=== PATIENT | female | born 1990 | race Caucasian/White ===

== ENCOUNTER 2022-12-22 23:17 | Outpatient (CLI) | payer OTHER, SELFPAY ==
[2022-12-22 23:34] VITALS: PULSE 101; TEMP 37.1; O2SAT 98
[2022-12-22 23:35] VITALS: BMI 27.4
[2022-12-22 23:39] VITALS: BP 134/89; PULSE 114; PULSE 93; O2SAT 97
--- NOTE | 2023-01-04 08:32 | OB.TRI.NOTE ---
HPI - General General Date of Admission: 12/22/22 Date of Service: 12/22/22 Chief Complaint: r/o labor HPI Narrative YESENIA AGUDELO, is a 32 F who presents to OB triage at 39w5d with ctx's. No vb, lof. Good FM. Had membrane sweep in office and having regular ctx's. PFSH PFSH Medical History (Updated 01/04/23 @ 08:[address] Angie Sanchez, DO) Anxiety cardiac anomaly affecting , antepartum GDM, class A1 History of anxiety Mother currently breast-feeding (spontaneous vaginal delivery) Home Medications [id number] 1 mg tablet 1 tab PO DAILY 12/22/22 [History Last Taken 12/24/22 09:00 1 TAB] Allergy/AdvReac Type Severity Reaction Status Date / Time penicillin G Allergy Hives Verified 12/22/22 23:36 Surgical History (Updated 12/24/22 @ 19:39 by Carmelita Antoine) History of surgery Social History Smoking Status: Never smoker History Elective abortions Hx Para 0 Spontaneous abortions Hx # Term Pregnancies Ectopic pregnancies Hx # Pregnancies Multiple births # of living children NST FHR Rate Baby A Baseline: 120 Variability:: Moderate Accelerations:: 15 x 15 Decelerations:: None NST Reactive:: Yes FHR Category:: Category I Uterine Activity:: Ctx q 2-3 min Assessment & Plan (1) Uterine contractions: PLAN: - Cvx unchanged on exam after observation per RN - Suspect early labor - Return precautions
== END 2022-12-23 02:20 | disposition home or self-care (01) ==
LOC: WPOUT 23:30 → WP 23:32
PROVIDERS: PCP Family Medicine; Visit Provider Obstetrics & Gynecology
DX: O47.1 False labor at or after 37 completed weeks of gestation (principal); Z3A.39 39 weeks gestation of pregnancy
CPT/HCPCS: 59025; 59050; 99221; G0378

== ENCOUNTER 2022-12-24 18:55 | Inpatient (IN) | payer OTHER, SELFPAY ==
[2022-12-24] VITALS (20 sets, daily range): BP systolic 121–151; BP diastolic 77–95; PULSE 75–126; TEMP 36.2–36.8; O2SAT 97–99; BMI 26.4
--- OUTSIDE RECORDS SUMMARY | 2022-12-24 19:06 | XMS RPT_ITS | CCD ---
Author Name Unknown Address [address] [place] [address] Organization [facility] Care Team Providers Care Wildlife Conservationist Name Role Phone Albin Javier Unavailable Unavailable Moira Schafer Unavailable Unavailable Moira Schafer Unavailable Unavailable Dick Townsend Unavailable Unavailable None, No PCP Unavailable Unavailable Moira Schafer Unavailable Unavailable Unavailable Dr. Moira Schafer Primary Care Unavailable Sam, Dr. Gloria Bird Referring Unav ailable Vargas, Dr. Gloria Bird Attending Unav ailable YAYA, Dr. ALBIN ROBLEDO Referring Unavailkristofer JAVIER, Dr. ALBIN ROBLEDO Attending Unavailkristofer Schafer, Dr. Pizarro Primary Care Unavailable YAYA, Dr. ALBIN ROBLEDO Attending Unavailkristofer Schafer, Dr. Pizarro Primary Care Unavailable Unavailable Primary Care Provider UnavailAury Shaver RN Unavailable Unavailable PROUDFIT, LAZARA Referring Unavailable RYAN LEONARDO Attending Unavailable PROUDFIT, LAZARA Referring Unavailable GINA URIARTE Referring Unavailable CHAPITO GINA Referring Unavailable ANNY GOMEZ Attending Unavail able ANNY GOMEZ Attending Unavail able AMARA PIZANO Attending Unavailable AMARA PIZANO Attending Unavailable ANNY GOMEZ Attending Unavail able GINA URIARTE Attending Unavailable JUANITA LOCKWOOD Referring Unavailable LINSEY VENTURA Attending Unavailable GINA URIARTE Attending Unavailable AMARA PIZANO Attending Unavailable CHAPITO GINA Referring Unavailable JENN URIARTESSICA Attending Unavailable KIMBERLY CARMONA Attending Unavailable MADIE SANCHEZ Referring Unavailable SELF Referring Unavailable SELENA ALEJANDRA Attending Unavailable GINA URIARTE Attending Unavailable TAMI LITTLEJOHN Attending Unavailable CHAPITO, GINA Referring Unavailable JUANITA LOCKWOOD Attending Unavailable JUANITA LOCKWOOD Referring Unavailable SELENA ALEJANDRA Attending Unavailable GINA URIARTE Referring Unavailable Allergies Allergy Classification Reported Allergen(s) Allergy Type Date of Onset Reaction(s) Facility (8 sources) Penicillins; Translations: [Penicillins] Allergy to drug (finding) 06-08-2022 Unknown [facility] Other [place] [facility] (20 sources) Penicillins Drug Allergy 06-08-2022 Hives [facility] Work Phone: Medications Completed/Discontinued Medications Medication Drug Class(es) Dates Sig (Normalized) Sig (Original) aspirin 81 mg delayed release oral tablet (20 sources) Platelet Aggregation Inhibitor, Nonsteroidal Anti-inflammatory Drug Start: 06-19-2022 take 2 tablets by mouth once daily aspirin, enteric coated (ECOTRIN LOW STRENGTH) 81 mg EC tablet Take 2 tablets by mouth once daily. 0 06/19/2022 Active Problems Active Problems Problem Classification Problem Date Documented Date Episodic/Chronic Anxiety disorders (7 sources) Anxiety; Translations: [Anxiety state, unspecified] Chronic Contraceptive and procreative management (13 sources) Patient encounter status; Translations: [Other general counseling and advice on contraceptive management] Episodic Diabetes or abnormal glucose tolerance complicating ; childbirth; or the puerperium (20 sources) Impaired glucose tolerance in ; Translations: [Abnormal glucose complicating ] Onset: 09-25-2022 Episodic Other circulatory disease (6 sources) Feeling of lump in throat; Translations: [Gastrointestinal malfunction arising from mental factors] Episodic Other complications of ; puerperium affecting management of mother (1 source) care status; Translations: [Maternal care for other (suspected) abnormality and damage, cardiac anomalies, other fetus] Episodic Other complications of ; puerperium affecting management of mother (12 sources) Abnormality of heart; Translations: [Anomaly of heart of fetus affecting , antepartum, single or unspecified fetus] Onset: 11-16-2022 Episodic Other complications of (1 source) Hyperemesis gravidarum; Translations: [Mild hyperemesis gravidarum, unspecified as to episode of care or not applicable] Episodic Other lower respiratory disease (1 source) Cough; Translations: [Cough] Episodic Other and delivery including normal (20 sources) Urine test positive; Translations: [ examination or test, positive result] Onset: 06-08-2022 Episodic Other screening for suspected conditions (not mental disorders or infectious disease) (10 sources) Cancer cervix screening status; Translations: [Screening for malignant neoplasms of cervix] Onset: 02-14-2022 Episodic Past or Other Problems Problem Classification Problem Date Documented Da te Episodic/Chronic Cancer; other and unspecified primary (7 sources) H/O Malignant melanoma; Translations: [Personal history of malignant melanoma of skin] Resolved: 08-01-2019 Episodic Residual codes; unclassified (1 source) 25 weeks gestation of ; Translations: [25 weeks gestation of ] Onset: 09-18-2022 Episodic Residual codes; unclassified (1 source) 21 weeks gestation of ; Translations: [21 weeks gestation of ] Onset: 08-16-2022 Episodic Residual codes; unclassified (1 source) 13 weeks gestation of ; Translations: [13 weeks gestation of ] Onset: 08-07-2022 Episodic Residual codes; unclassified (1 source) 16 weeks gestation of ; Translations: [16 weeks gestation of ] Onset: 07-10-2022 Episodic Screening and history of mental health and substance abuse codes (20 sources) H/O: anxiety state; Translations: [Personal history of other mental and behavioral disorders] Onset: 06-08-2022 Episodic Unclassified (1 source) Patient encounter status; Translations: [ control counseling] NEGATED: Highlighted row has not occurred!Residual codes; unclassified (2 sources) Disease Episodic Results Test Name Value Interpretation Reference Range Facil ity Vital Signs Date Time Vital Sign Value Performing Clinician Melanie louis 12-20-2022 [id number] Body weight 61.24 kg Anny Nieves MD Work Phone: [facility] 12-20-2022 16:10-0400 Diastolic blood pressure 78 mm[Hg] Anny Nieves MD Work Phone: [facility] 12-20-2022 16:10-0400 Systolic blood pressure 128 mm[Hg] Anny Nieves MD Work Phone: [facility] 12-13-2022 13:09-040 Body weight 61.24 kg Amara Pizano APRN.CNM Work Phone: [facility] 12-13-2022 13:09-0400 Diastolic blood pressure 72 mm[Hg] Amara Plotts MATERNITY FLOOR SUPERVISOR.CNM Work Phone: [facility] 12-13-2022 13:09-0400 Systolic blood pressure 110 mm[Hg] Amara Plotts MATERNITY FLOOR SUPERVISOR.CNM Work Phone: [facility] 12-06-2022 14:12-0400 Body weight 60.33 kg Anny Nieves MD Work Phone: [facility] 12-06-2022 14:12-0400 Diastolic blood pressure 62 mm[Hg] Anny Nieves MD Work Phone: [facility] 12-06-2022 14:12-0400 Systolic blood pressure 100 mm[Hg] Anny Nieves MD Work Phone: [facility] 11-30-2022 14:22-0400 Diastolic blood pressure 60 mm[Hg] Selena Alejandra MD Work Phone: [facility] 11-30-2022 14:22-0400 Systolic blood pressure 100 mm[Hg] Selena Alejandra MD Work Phone: [facility] 11-30-2022 13:59-0400 Body weight 61.24 kg Ob Ultrasound Work Phone: [facility] 11-16-2022 15:24-0400 Body weight 59.15 kg Selena Alejandra MD Work Phone: [facility] 11-16-2022 15:24-0400 Diastolic blood pressure 64 mm[Hg] Selena Alejandra MD Work Phone: [facility] 11-16-2022 15:24-0400 Systolic blood pressure 110 mm[Hg] Selena Alejandra MD Work Phone: [facility] 11-02-2022 09:36-0400 Diastolic blood pressure 70 mm[Hg] Amara Plotts MATERNITY FLOOR SUPERVISOR.CNM Work Phone: [facility] 11-02-2022 09:36-0400 Systolic blood pressure 104 mm[Hg] Amara Pizano MATERNITY FLOOR SUPERVISOR.CNM Work Phone: [facility] 10-30-2022 07:53-0400 Body height 149.9 cm Tami Littlejohn MILADIS [facility] 10-30-2022 07:53-0400 Body weight 56.7 kg Tami Escalantemike REDDING [facility] 10-18-2022 13:14-0400 Body weight 56.7 kg Gina Uriarte MATERNITY FLOOR SUPERVISOR.CNM Work Phone: [facility] 10-18-2022 13:14-0400 Diastolic blood pressure 64 mm[Hg] Gina Uriarte MATERNITY FLOOR SUPERVISOR.CNM Work Phone: [facility] 10-18-2022 13:14-0400 Systolic blood pressure 114 mm[Hg] Gina Uriarte MATERNITY FLOOR SUPERVISOR.CNM Work Phone: [facility] 09-13-2022 15:15-0400 Body weight 57.15 kg Gina Uriarte MATERNITY FLOOR SUPERVISOR.CNM Work Phone: [facility] 09-13-2022 15:15-0400 Diastolic blood pressure 60 mm[Hg] Gina Uriarte MATERNITY FLOOR SUPERVISOR.CNM Work Phone: [facility] 09-13-2022 15:15-0400 Systolic blood pressure 102 mm[Hg] Gina Uriarte MATERNITY FLOOR SUPERVISOR.CNM Work Phone: [facility] 08-16-2022 14:15-0400 Body weight 53.52 kg Gina Uriarte MATERNITY FLOOR SUPERVISOR.CNM Work Phone: [facility] 08-16-2022 14:15-0400 Diastolic blood pressure 77 mm[Hg] Gina Uriarte MATERNITY FLOOR SUPERVISOR.CNM Work Phone: [facility] 08-16-2022 14:15-0400 Systolic blood pressure 113 mm[Hg] Gina Uriarte MATERNITY FLOOR SUPERVISOR.CNM Work Phone: [facility] 08-07-2022 15:37-0400 Body weight 53.98 kg Anny Nieves MD Work Phone: [facility] 08-07-2022 15:37-0400 Diastolic blood pressure 62 mm[Hg] Anny Nieves MD Work Phone: [facility] 08-07-2022 15:37-0400 Systolic blood pressure 100 mm[Hg] Anny Nieves MD Work Phone: [facility] 07-10-2022 14:34-0500 Body weight 52.71 kg Gina Uriarte MATERNITY FLOOR SUPERVISOR.CNM Work Phone: [facility] 07-10-2022 14:34-0500 Diastolic blood pressure 66 mm[Hg] Gina Uriarte MATERNITY FLOOR SUPERVISOR.CNM Work Phone: [facility] 07-10-2022 14:34-0500 Systolic blood pressure 112 mm[Hg] Gina Uriarte MATERNITY FLOOR SUPERVISOR.CNM Work Phone: [facility] 06-19-2022 11:36-0500 Body height 149.9 cm Juanita Lockwood MD Work Phone: [facility] 06-19-2022 11:36-0500 Body weight 49.44 kg Juanita Lockwood MD Work Phone: [facility] 06-19-2022 11:36-0500 Diastolic blood pressure 60 mm[Hg] Juanita Lockwood MD Work Phone: [facility] 06-19-2022 11:36-0500 Systolic blood pressure 102 mm[Hg] Juanita Lockwood MD Work Phone: [facility] 05-19-2022 14:57-0500 Body height 153.16 cm Moira Schafer [facility] Phone: [facility] [employer] Work Phone: 05-19-2022 14:57-0500 Body mass index (BMI) [Ratio] 21.1 kg/m2 Moira Schafer Work Phone: [facility] [employer] Work Phone: 05-19-2022 14:57-0500 Body surface area Derived from formula 1.45 m2 Moira Schafer Work Phone: [place] [address] [place] Work Phone: 05-19-2022 14:57-0500 Body weight 49.5 kg Moira Schafer Work Phone: [place] [address] [employer] Work Phone: 05-19-2022 14:57-0500 Diastolic blood pressure 82 mm[Hg] Moira Schafer Work Phone: [place] [address] [employer] Work Phone: 05-19-2022 14:57-0500 Systolic blood pressure 126 mm[Hg] Moira Schafer Work Phone: [place] [address] [employer] Work Phone: 02-14-2022 15:42-0400 Body height 153.16 cm Moira Valenzuela Schafer Work Phone: [place] [address] [employer] Work Phone: 02-14-2022 15:42-0400 Body mass index (BMI) [Ratio] 21.49 kg/m2 Moira Schafer Work Phone: [place] [address] [employer] Work Phone: 02-14-2022 15:42-0400 Body surface area Derived from formula 1.46 m2 Moira Schafer Work Phone: [place] [address] [employer] Work Phone: 02-14-2022 15:42-0400 Body weight 50.41 kg Moira Schafer Work Phone: [place] [address] [employer] Work Phone: 02-14-2022 15:42-0400 Diastolic blood pressure 70 mm[Hg] Moira Schafer Work Phone: [place] [address] [employer] Work Phone: 02-14-2022 15:42-0400 Systolic blood pressure 108 mm[Hg] Moira Schafer Work Phone: [place] [address] [employer] Work Phone: 02-08-2021 15:31-0400 Body height 153.19 cm Moira Schafer Work Phone: [place] [address] [employer] Work Phone: 02-08-2021 15:31-0400 Body mass index (BMI) [Ratio] 21.14 kg/m2 Moira Schafer Work Phone: [place] [address] [place] Work Phone: 02-08-2021 15:31-0400 Body surface area Derived from formula 1.45 m2 Moira Schafer Work Phone: [place] [address] [employer] Work Phone: 02-08-2021 15:31-0400 Body temperature 98.2 [degF] Moira Schafer Work Phone: [place] [address] [employer] Work Phone: 02-08-2021 15:31-0400 Body weight 49.6 kg Moira Schafer Work Phone: [place] [address] [place] Work Phone: 02-08-2021 15:31-0400 Diastolic blood pressure 68 mm[Hg] Moira Schafer Work Phone: [place] [address] [employer] Work Phone: 02-08-2021 15:31-0400 Systolic blood pressure 118 mm[Hg] Moira Schafer Work Phone: [place] [address] [place] Work Phone: 08-01-2019 12:17-0400 BMI (Body Mass Index) 19.61 kg/m2 Moira Schafer [facility] Work Phone: 08-01-2019 12:17-0400 Body weight 46.01 kg Moira Gilmar [facility] Work Phone: 08-01-2019 12: BP Diastolic 74 mm[Hg] Moira Gilmar [facility] Work Phone: Encounters Encounter Date Encounter Type Care Provider Facility Start: 12-22-2022 Telephone encounter Madie feldman MD Work Phone: OB/Gynecology Procedures Date Procedure Procedure Detail Performing Clinician Start: 12-20-2022 URINE OB DIP B/O Anny Nieves MD Work Phone: Start: 12-06-2022 URINE OB DIP B/O Anny Nieves MD Work Phone: Start: 11-30-2022 URINE OB DIP B/O Selena Alejandra MD Work Phone: Start: 11-30-2022 Us preg uterus after 1st trimest 05/14 gestation Gina Uriarte MATERNITY FLOOR SUPERVISOR.CNM Work Phone: Start: 11-16-2022 URINE OB DIP B/O Selena Alejandra MD Work Phone: Start: 11-02-2022 URINE OB DIP B/O Maycol Pizano MATERNITY FLOOR SUPERVISOR.CNM Work Phone: Start: 10-18-2022 URINE OB DIP B/O Jeanine Uriarte MATERNITY FLOOR SUPERVISOR.CNM Work Phone: Start: 09-13-2022 URINE OB DIP B/O Jeanine Uriarte MATERNITY FLOOR SUPERVISOR.CNM Work Phone: Start: 08-16-2022 URINE OB DIP B/O Jeanine Uriarte MATERNITY FLOOR SUPERVISOR.CNM Work Phone: Start: 08-07-2022 URINE OB DIP B/O Anny Nieves MD Work Phone: Start: 07-10-2022 URINE OB DIP B/O Jeanine Uriarte MATERNITY FLOOR SUPERVISOR.CNM Work Phone: Start: 06-19-2022 Antibody screen GINA URIARTE Plan of Treatment Date Care Activity Detail Author Start: 10-04-2032 Urine microalbumin profile DTAP,TDAP,TD (2 - Td or Tdap) [facility] Start: 02-14-2027 HPV TESTING HPV TESTING [facility] Start: 02-14-2027 PAP TESTING PAP TESTING [facility] Start: 02-16-2023 Patient encounter procedure ANNUAL, Provider: Gloria Vargas, Status: Pen, Time: 3:30 PM [address] Work Phone: Start: 01-12-2023 Influenza vaccination [facility] Start: 10-20-2022 End: 12-20-2022 GEST GLUC COLUMBA, 3-HR, 100 GM, FASTING GEST GLUC COLUMBA, 3-HR, 100 GM, FASTING Lab Routine Abnormal glucose in , antepartum Expected: 10/20/2022, Expires: 12/20/2022 [facility] Work Phone: Immunizations Immunization Date Immunization Notes Care Provider Fa naz 10-04-2022 tetanus toxoid, redu reese diphtheria toxoid, and acellular pertussis vaccine, adsorbed Juanita Lockwood MD Work Phone: [facility] Payers Date Payer Category Payer Unknown 2022 Unknown [id number] 1990 Unknown [id number] [id number] 1990 Unknown [id number] [id number]. [id number] 1990 Unknown [id number] [id number]. [id number] Private Health Insurance [id number] Social History Date Type Detail Facility Start: 09-13-2022 End: 11-16-2022 Never a smoker Never a smoker [address] Work Phone: Start: 06-08-2022 Tobacco smoking status NHIS Never smoked tobacco [facility] Work Phone: Start: 06-08-2022 Tobacco use and exposure Smokeless tobacco non-user [facility] Work Phone: Start: 06-08-2022 End: 12-13-2022 Alcohol intake Ex-drinker (finding) [facility] Start: 06-08-2022 Education 13 [facility] Start: 06-08-2022 Alcohol Comment Occasionally [facility] Start: 04-03-2022 [facility] Start: 1990 Sex Assigned At Not on file [facility] Start: 09-13-2022 End: 11-16-2022 Tobacco use panel [facility] National Score (1-100), lower number is lower risk 89 [facility] NEGATED: Highlighted row - - [facility] Work Phone: Medical Equipment Procedure Code Equipment Code Equipment Origin al Text Equipment Identifier Dates Start: 09-25-2022 Goals Date Patient Goal Desired Activity /State Personal health goal Functional Status Date Assessment Result Facility NEGATED: Highlighted row Functional performance Functional status health issues are not documented Disease [facility] Work Phone: Mental Status Date Assessment Result Facility NEGATED: Highlighted row Cognitive function [Interpretation] Cognitive status health issues are not documented Disease [facility] Work Phone: Clinical Notes 01-16-2022 to 12-22-2022 Telephone Encounter - Leah Esposito RN - 12/22/2022 12:28 PM EDTTelephone Encounter - Madie Sanchez MD - 12/22/2022 12:25 PM EDTTelephone Encounter - Kathleen Rasmussen RN - 12/22/2022 10:02 AM EDT Note Date & Type Note Facility 12-22-2022 Miscellaneous Notes Patient notified. Leah Esposito RN Agree with labor precautions 39w4d Patient had a membrane sweep this week. Having light pink to red spotting only when she wipes still. Denies LOF. Thinks she may have lost all or part of her mucous plug. Having intermittent contractions. This morning she was pretty uncomfortable, but no contractions now. Reviewed s/s of labor. Scheduled for IOL of Sunday. Good FM. Advised to continue to monitor and a message would be sent to DOC. Kathleen Rasmussen RN documented in this encounter [facility] 12-20-2022 Miscellaneous Notes DM- Pt doing well today. Denies Vaginal Bleeding, Leaking fluid, or contractions. Pt reports good movement. BS- log reviewed- well controlled. IOL scheduled 39.6 weeks for cervical ripening, GDMA1. Kick counts and labor reviewed. Anny Rivera MD documented in this encounter [facility] 12-20-2022 Instructions Radha Ferro Ma 12/20/2022 4:06 PM EDT SEQUENTIAL SCREENINGS The [facility] offers sequential screenings for women who are interested in screenings for chromosomal abnormalities and certain defects during a . The sequential screen combines ultrasound and blood tests to determine the risk of chromosomal abnormalities, including Down's Syndrome (Trisomy 21) and Trisomy 18, as well as open neural tube defects including spina bifida. Ultrasound examination is performed between 11 weeks and 13 weeks gestational age. Blood tests are drawn after the ultrasound and again later in the between 15 and 21 weeks gestational age. Please let your physician know if you are interested in this testing. It will require an appointment with our cadd technician. This is not an ultrasound performed by a physician in our office during a routine visit. SIGNS AND SYMPTOMS OF LABOR 1. Contractions every 10 minutes or more often 2. Clear, pink, or brownish fluid (water) leaking from vagina 3. Feeling that baby is pushing down, pressure 4. Low, dull backache 5. Cramps that feel like a period 6. Cramps with or without diarrhea If you notice any of the above symptoms, contact our office at [phone] and ask to speak with a nurse. After hours, you can call doctors registry at [phone] OR call [facility] at [phone] and ask to have the doctor stone banker paged. If you consider this an emergency, dial 9-1-0 or go to your nearest emergency department. NEED HELP? Are you dealing with a violent or abusive relationship? Are you a victim of rape or sexual assult? Call [facility] ([place]) 24 hour Crisis Hotline: 419.680.3434 or 481-021-6207. MANUAL Your Guide to a Healthy manual is now on-line. Visit [email or web address] ncyGuide to download your free copy documented in this encounter [facility] 12-18-2022 Miscellaneous Notes Please make sure she is drinking and eating appropriately. Slower movements with position changes and elevating feet when sitting. Amara Pizano APRN.CNM 39w0d documented in this encounter [facility] 12-13-2022 Miscellaneous Notes Kathleen Diaz is a 32 year old female who presents at 38w2d for a routine visit. Good movement. Occasional cramps with some lower back pain. Nothing that is consistent or able to time. Denies headache, visual changes, chest pain, shortness of breath, vaginal bleeding, leakage of fluid, or dysuria. Feeling well, no complaints. Requesting CE today. ASSESSMENT/PLAN: 1. 38 weeks gestation of - ICD9: V22.2, ICD10: Z3A.38 (primary diagnosis) 2. Gestational diabetes mellitus, class A1 - ICD9: 648.80, ICD10: O24.410 3. LUIS ANTONIO (generalized anxiety disorder) - ICD9: 300.02, ICD10: F41.1 - Reviewed blood sugar logs- Fastings- none elevated. 1 hour PP- 3 elevated. <50% out of range. Good control - URINE OB DIP B/O - Desires physiological onset of labor - Discussed induction of labor- elective vs. medically indicated. Patient declines induction at 39 weeks which is appropriate due to being GDM A1 and well controlled with diet. No other risk factors. May desire induction at 40 weeks. - EFW 26%, GAMALIEL 16 at 36 weeks gestation - GBS negative - Labor precautions and kick counts reviewed RTO- 1 week for HILDA with CE and possible membrane sweep Amara Pizano APRN.CNM documented in this encounter [facility] 12-13-2022 Instructions Amara Pizano APRN.CNM - 12/13/2022 1:09 PM EDT Monistat 7 vaginally x 7 night SEQUENTIAL SCREENINGS The [facility] offers sequential screenings for women who are interested in screenings for chromosomal abnormalities and certain defects during a . The sequential screen combines ultrasound and blood tests to determine the risk of chromosomal abnormalities, including Down's Syndrome (Trisomy 21) and Trisomy 18, as well as open neural tube defects including spina bifida. Ultrasound examination is performed between 11 weeks and 13 weeks gestational age. Blood tests are drawn after the ultrasound and again later in the between 15 and 21 weeks gestational age. Please let your physician know if you are interested in this testing. It will require an appointment with our cadd technician. This is not an ultrasound performed by a physician in our office during a routine visit. SIGNS AND SYMPTOMS OF LABOR 1. Contractions every 10 minutes or more often 2. Clear, pink, or brownish fluid (water) leaking from vagina 3. Feeling that baby is pushing down, pressure 4. Low, dull backache 5. Cramps that feel like a period 6. Cramps with or without diarrhea If you notice any of the above symptoms, contact our office at [phone] and ask to speak with a nurse. After hours, you can call doctors registry at [phone] OR call [facility] at [phone] and ask to have the doctor stone banker paged. If you consider this an emergency, dial 9-1-5 or go to your nearest emergency department. NEED HELP? Are you dealing with a violent or abusive relationship? Are you a victim of rape or sexual assult? Call [facility] ([place]) 24 hour Crisis Hotline: 791.100.2950 or 812-660-1114. MANUAL Your Guide to a Healthy manual is now on-line. Visit [email or web address] ncyGuide to download your free copy documented in this encounter [facility] 12-06-2022 Miscellaneous Notes DM- Pt doing well today. Denies Vaginal Bleeding, Leaking fluid, or contractions. Pt reports good movement. BS log reviewed- well controlled, all WNL. Kick counts and labor reviewed. Growth us reviewed, 26%. RTO one week. Delivery by 40 weeks for GDMA1. Anny Rivera MD documented in this encounter [facility] 12-06-2022 Instructions Radha Ferro Ma - 12/06/2022 2:12 PM EDT SEQUENTIAL SCREENINGS The [facility] offers sequential screenings for women who are interested in screenings for chromosomal abnormalities and certain defects during a . The sequential screen combines ultrasound and blood tests to determine the risk of chromosomal abnormalities, including Down's Syndrome (Trisomy 21) and Trisomy 18, as well as open neural tube defects including spina bifida. Ultrasound examination is performed between 11 weeks and 13 weeks gestational age. Blood tests are drawn after the ultrasound and again later in the between 15 and 21 weeks gestational age. Please let your physician know if you are interested in this testing. It will require an appointment with our cadd technician. This is not an ultrasound performed by a physician in our office during a routine visit. SIGNS AND SYMPTOMS OF LABOR 1. Contractions every 10 minutes or more often 2. Clear, pink, or brownish fluid (water) leaking from vagina 3. Feeling that baby is pushing down, pressure 4. Low, dull backache 5. Cramps that feel like a period 6. Cramps with or without diarrhea If you notice any of the above symptoms, contact our office at [phone] and ask to speak with a nurse. After hours, you can call doctors registry at [phone] OR call [facility] at [phone] and ask to have the doctor stone banker paged. If you consider this an emergency, dial 9-1-4 or go to your nearest emergency department. NEED HELP? Are you dealing with a violent or abusive relationship? Are you a victim of rape or sexual assult? Call [facility] ([place]) 24 hour Crisis Hotline: 362.384.4506 or 829-786-9764. MANUAL Your Guide to a Healthy manual is now on-line. Visit [email or web address] ncyGuide to download your free copy documented in this encounter [facility] 11-30-2022 Miscellaneous Notes Patient notified The report says it there is concern for a bicuspid aortic valve. This is what we have been evaluating on the US & echo. The plan is still to get a post troy echo. There are no new concerns. Selena Alejandra MD Please see pt's mychart message and further advise. Sheeba Cat LPN documented in this encounter [facility] 11-30-2022 Miscellaneous Notes KJ - No VB/LOF. Reports occ mild ctxs & good FM. A&P: GDM - BS log reviewed & overall normal. Encouraged continued diet compliance & walking. Possible bicuspid aortic valve - see problem list GBS today Reviewed PTL & FM precautions Selena Alejandra MD documented in this encounter [facility] 11-30-2022 Instructions Ibis Mtz MA - 11/30/2022 2:05 PM EDT SEQUENTIAL SCREENINGS The [facility] offers sequential screenings for women who are interested in screenings for chromosomal abnormalities and certain defects during a . The sequential screen combines ultrasound and blood tests to determine the risk of chromosomal abnormalities, including Down's Syndrome (Trisomy 21) and Trisomy 18, as well as open neural tube defects including spina bifida. Ultrasound examination is performed between 11 weeks and 13 weeks gestational age. Blood tests are drawn after the ultrasound and again later in the between 15 and 21 weeks gestational age. Please let your physician know if you are interested in this testing. It will require an appointment with our cadd technician. This is not an ultrasound performed by a physician in our office during a routine visit. SIGNS AND SYMPTOMS OF LABOR 1. Contractions every 10 minutes or more often 2. Clear, pink, or brownish fluid (water) leaking from vagina 3. Feeling that baby is pushing down, pressure 4. Low, dull backache 5. Cramps that feel like a period 6. Cramps with or without diarrhea If you notice any of the above symptoms, contact our office at [phone] and ask to speak with a nurse. After hours, you can call doctors registry at [phone] OR call [facility] at [phone] and ask to have the doctor stone banker paged. If you consider this an emergency, dial 2--8 or go to your nearest emergency department. NEED HELP? Are you dealing with a violent or abusive relationship? Are you a victim of rape or sexual assult? Call [facility] ([place]) 24 hour Crisis Hotline: 986.633.7868 or 350-657-3952. MANUAL Your Guide to a Healthy manual is now on-line. Visit [email or web address] ncyGuide to download your free copy documented in this encounter [facility] 11-28-2022 Miscellaneous Notes Noted Please have her bring log to visit this week Selena Alejandra MD Patient has an OB visit scheduled with Dr Alejandra on 11/30 documented in this encounter [facility] 11-27-2022 Miscellaneous Notes Breast pump order signed and faxed. Leah Esposito RN Received faxed breast pump order from [employer] . On DM desk for signature documented in this encounter [facility] 11-16-2022 Miscellaneous Notes KJ - No VB/LOF/ctxs. Reports good FM. A&P: Possible bicuspid aortic valve - see problem list GDMA1 - BS log reviewed & overall normal. Encouraged diet compliance & walking. Reviewed PTL & FM precautions Selena Alejandra MD documented in this encounter [facility] 11-16-2022 Instructions Ibis Mtz MA - 11/16/2022 3:19 PM EDT SEQUENTIAL SCREENINGS The [facility] offers sequential screenings for women who are interested in screenings for chromosomal abnormalities and certain defects during a . The sequential screen combines ultrasound and blood tests to determine the risk of chromosomal abnormalities, including Down's Syndrome (Trisomy 21) and Trisomy 18, as well as open neural tube defects including spina bifida. Ultrasound examination is performed between 11 weeks and 13 weeks gestational age. Blood tests are drawn after the ultrasound and again later in the between 15 and 21 weeks gestational age. Please let your physician know if you are interested in this testing. It will require an appointment with our cadd technician. This is not an ultrasound performed by a physician in our office during a routine visit. SIGNS AND SYMPTOMS OF LABOR 1. Contractions every 10 minutes or more often 2. Clear, pink, or brownish fluid (water) leaking from vagina 3. Feeling that baby is pushing down, pressure 4. Low, dull backache 5. Cramps that feel like a period 6. Cramps with or without diarrhea If you notice any of the above symptoms, contact our office at [phone] and ask to speak with a nurse. After hours, you can call doctors registry at [phone] OR call [facility] at [phone] and ask to have the doctor stone banker paged. If you consider this an emergency, dial 9-1-6 or go to your nearest emergency department. NEED HELP? Are you dealing with a violent or abusive relationship? Are you a victim of rape or sexual assult? Call [facility] ([place]) 24 hour Crisis Hotline: 446.313.3803 or 522-791-0302. MANUAL Your Guide to a Healthy manual is now on-line. Visit [email or web address] ncyGuide to download your free copy documented in this encounter [facility] 11-10-2022 Miscellaneous Notes Please see pt's mychart message and advise. Sheeba Cat LPN documented in this encounter [facility] 11-10-2022 Miscellaneous Notes See pt's blood sugar readings. Sheeba Cat LPN Patient 32w4d, last seen in office yesterday with CP. Looks like provider reviewed blood sugars with her yesterday. Haley Goodwin RN documented in this encounter [facility] 11-06-2022 Note HNO ID: [id number] Author: Ryan Leonardo MD Service: ? Author Type: Physician Type: Progress Notes Filed: 11/06/2022 1:21 PM Note Text: /Pediatric Cardiology Consultation Lazara Kirk [address] [facility] [address] NAME: Kathleen Diaz Date of : 1990 Date of Visit: November 06, 2022 Estimated Date of Delivery: 12/25/[address] Kirk, I had the pleasure of seeing your patient, Ms. Kathleen Diaz, for a echocardiogram at the [facility] in [place]. As you know, she is a 32 year old year old female at 33 weeks 0 days gestation who is here for a echocardiogram due to thickened/echogenic aortic valve. She has history of melanoma s/p removal, anxiety, and diet-controlled gestational diabetes, otherwise had an uncomplicated so far. She checks her blood sugars 4 daily, they generally trend 70s - 150s. Genetic testing included a low risk NIPT, female fetus. Her current medications include hydroxyzine, aspirin, and vitamins. She endorses a medication allergy to Penicillin antibiotics. Kathleen's mother has mitral valve prolapse, otherwise no known family history of congenital heart disease, sudden cardiac , pacemakers congenital anomalies. She denies any alcohol, tobacco, or drug use during the . She plans to deliver at [facility]. A full echocardiogram was performed and reviewed by myself. Please see the full report in Chart Review/Cardiac tab. echocardiogram today showed normal intracardiac segmental anatomy. The biventricular size and function was qualitatively normal. No significant left- right size discrepancy. No significant ventricular level shunts. There is borderline hypoplastic aortic valve without stenosis or regurgitation. No evidence for hydrops. The ductus venosus, umbilical vein and umbilical artery Dopplers were normal. Echocardiogram Summary: Levocardia with normal intracardiac segmental anatomy (S, D, S). Mildly echogenic aortic valve leaflets without stenosis or regurgitation. Aortic valve measures lower limits of normal (5.0 mm/Z-1.99). Normal ascending aorta dimension. No significant atrioventricular valvar regurgitation; normal biphasic inflow pattern. Normal left-sided aortic and ductal arches. Normal aortic isthmus 4.4 mm on sagittal view (Pasquini z-score +0.51); 4.2 mm on 3VV (Pasquini z-score -0.14). Normal biventricular size, wall thickness, and systolic function. No significant right/left ventricular size discrepancy. One right and one left-sided pulmonary veins connect to left atrium. Normal systemic venous connections. No left SVC. Foramen ovale with normal intrauterine right to left flow. No pericardial effusion or evidence of hydrops. Normal umbilical artery/vein, ductus venosus, and MCA Doppler profiles. Normal heart rate (161 BPM, TX 113 ms) and rhythm. We reviewed the findings of today's echocardiogram with Ms. Kathleen Diaz with the help of a diagram. I explained normal and cardiac anatomy and physiology. I explained the aortic valve appears mildly echobright/thickened, suggesting a bicuspid aortic valve. The effective annulus is borderline/mildly hypoplastic without stenosis or insufficiency. There is no dilation of the ascending aorta. The mitral valve appears normal without any hypoplasia or regurgitation. The left ventricle is normal sized, apex-forming without any evidence of significant hypertrophy or impaired systolic function. The aortic isthmus measures normally. As Ms. Diaz is already 33 weeks GA, we will defer further echocardiograms. We discussed the need for post- echocardiogram to confirm the diagnosis. If the baby is confirmed to have a bicuspid aortic valve, we discussed the genetic correlation that left-sided obstructive lesions including bicuspid aortic valves can run in families and we recommend echocardiograms of first degree relatives (mother/father/siblings). Should the degree of stenosis increase during , we discussed procedures that may be offered including percutaneous balloon dilation. I also explained the limitations of a echocardiogram, including that the foramen ovale and ductus arteriosus are normal structures and are present in the fetus today, however, we are unable to predict if they close normally after . In addition, we reviewed that certain cardiac anomalies are challenging to diagnose on echocardiography, including atrial septal defects, small ventricular septal defects, minor valve abnormalities, pulmonary vein anomalies and coarctation of the aorta. Based on today's echocardiogram, Assessment 1. Maternal gestational diabetes 2. Thickened/echobright aortic valve, borderline/mildly hypoplastic annul (more content not included)... [facility] 11-06-2022 History of Present illness Narrative /Pediatric Cardiology Consultation [facility]azara Kirk [address] [facility] [address] NAME: Kathleen Diaz Date of : 1990 Date of Visit: November 06, 2022 Estimated Date of Delivery: 12/25/[address] Kirk, I had the pleasure of seeing your patient, Ms. Kathleen Diaz, for a echocardiogram at the [facility] in [place]. As you know, she is a 32 year old year old female at 33 weeks 0 days gestation who is here for a echocardiogram due to thickened/echogenic aortic valve. She has history of melanoma s/p removal, anxiety, and diet-controlled gestational diabetes, otherwise had an uncomplicated so far. She checks her blood sugars 4 daily, they generally trend 70s - 150s. Genetic testing included a low risk NIPT, female fetus. Her current medications include hydroxyzine, aspirin, and vitamins. She endorses a medication allergy to Penicillin antibiotics. Kathleen's mother has mitral valve prolapse, otherwise no known family history of congenital heart disease, sudden cardiac , pacemakers <age 50 or heart transplants. No known family history of congenital anomalies. She denies any alcohol, tobacco, or drug use during the . She plans to deliver at [facility]. A full echocardiogram was performed and reviewed by myself. Please see the full report in Chart Review/Cardiac tab. echocardiogram today showed normal intracardiac segmental anatomy. The biventricular size and function was qualitatively normal. No significant left- right size discrepancy. No significant ventricular level shunts. There is borderline hypoplastic aortic valve without stenosis or regurgitation. No evidence for hydrops. The ductus venosus, umbilical vein and umbilical artery Dopplers were normal. Echocardiogram Summary: Levocardia with normal intracardiac segmental anatomy (S, D, S). Mildly echogenic aortic valve leaflets without stenosis or regurgitation. Aortic valve measures lower limits of normal (5.0 mm/Z-1.99). Normal ascending aorta dimension. No significant atrioventricular valvar regurgitation; normal biphasic inflow pattern. Normal left-sided aortic and ductal arches. Normal aortic isthmus 4.4 mm on sagittal view (Pasquini z-score +0.51); 4.2 mm on 3VV (Pasquini z-score -0.14). Normal biventricular size, wall thickness, and systolic function. No significant right/left ventricular size discrepancy. One right and one left-sided pulmonary veins connect to left atrium. Normal systemic venous connections. No left SVC. Foramen ovale with normal intrauterine right to left flow. No pericardial effusion or evidence of hydrops. Normal umbilical artery/vein, ductus venosus, and MCA Doppler profiles. Normal heart rate (161 BPM, TX 113 ms) and rhythm. We reviewed the findings of today's echocardiogram with Ms. Kathleen Diaz with the help of a diagram. I explained normal and cardiac anatomy and physiology. I explained the aortic valve appears mildly echobright/thickened, suggesting a bicuspid aortic valve. The effective annulus is borderline/mildly hypoplastic without stenosis or insufficiency. There is no dilation of the ascending aorta. The mitral valve appears normal without any hypoplasia or regurgitation. The left ventricle is normal sized, apex-forming without any evidence of significant hypertrophy or impaired systolic function. The aortic isthmus measures normally. As Ms. Diaz is already 33 weeks GA, we will defer further echocardiograms. We discussed the need for post-troy echocardiogram to confirm the diagnosis. If the baby is confirmed to have a bicuspid aortic valve, we discussed the genetic correlation that left-sided obstructive lesions including bicuspid aortic valves can run in families and we recommend echocardiograms of first degree relatives (mother/father/siblings). Should the degree of stenosis increase during , we discussed procedures that may be offered including percutaneous balloon dilation. I also explained the limitations of a echocardiogram, including that the foramen ovale and ductus arteriosus are normal structures and are present in the fetus today, however, we are unable to predict if they close normally after . In addition, we reviewed that certain cardiac anomalies are challenging to diagnose on echocardiography, including atrial septal defects, small ventricular septal defects, minor valve abnormalities, pulmonary vein anomalies and coarctation of the aorta. Based on today's echocardiogram, Assessment 1. Maternal gestational diabetes 2. Thickened/echobright aortic valve, borderline/mildly hypoplastic annulus (no regurgitation or stenosis) Normal intracardiac segmental anatomy 3. Otherwise, normal intracardiac segmental anatomy Plan: 1. We feel that she does not require further follow up with the cardiology team unless new or further concerns arise. We recommended a cardiac exam and a echocardiography at 2-4 weeks of age to confirm the suspected diagnosis. Since the family lives in [place], we will arrange follow up in [place] with my colleague Dr. Xavier Blanca. 2. Regular follow up with the MFM/obstetric service as scheduled. I reviewed all of this information with Ms. Kathleen Joe, who verbalized understanding and was in agreement with the plan of care. All her questions were answered. Thank you for allowing me to participate in the care of your patient. If you have any questions or concerns, please feel free to contact me at any time. Sincerely, Ryan Leonardo MD General Claims Agent of Pediatrics Division of Pediatric Cardiology [facility] During this patient visit I have spent approximately 50 minutes out of 60 in coordinating/counseling about the above findings and limitations of echocardiogram. documented in this encounter [facility] 11-02-2022 Miscellaneous Notes Call to Kathleen at the request of Dr Kirk to introduce myself as home care assistant and the [facility] Center. Discussion of the services offered including support, education, coordination of care and appointment scheduling. She is agreeable to coming to the [place] location for a echo on 11/06.My contact information was provided and Kathleen was invited to call with any questions or concerns. Also reviewed the multi-disciplinary team meetings in which patient's case will be discussed to optimize care planning. Patient's questions answered to the best of my ability. documented in this encounter [facility] 11-02-2022 Miscellaneous Notes Kathleen Diaz is a 32 year old female who presents at 32w3d for a routine visit. Just completed growth US and MFM reached out due to possible visualized thickness of aortic valve. A echocardiogram was ordered. Discussed findings with patient and questions answered. Good movement. Denies headache, visual changes, chest pain, shortness of breath, vaginal bleeding, leakage of fluid, or dysuria. Reviewed blood sugar readings. Fasting level -1 elevated, 1 hour PP- 4 elevated. Not >50% of levels out of range. Met with bombsight specialist this week. Working on diet changes. Feeling well, no complaints. 17 lbs TWG. PTL precautions reviewed. RTC in 2 weeks or sooner if needed. Amara Pizano APRN.CNM documented in this encounter [facility] 11-02-2022 Instructions Radha Ferro Hi - 11/02/2022 9:25 AM EDT SEQUENTIAL SCREENINGS The [facility] offers sequential screenings for women who are interested in screenings for chromosomal abnormalities and certain defects during a . The sequential screen combines ultrasound and blood tests to determine the risk of chromosomal abnormalities, including Down's Syndrome (Trisomy 21) and Trisomy 18, as well as open neural tube defects including spina bifida. Ultrasound examination is performed between 11 weeks and 13 weeks gestational age. Blood tests are drawn after the ultrasound and again later in the between 15 and 21 weeks gestational age. Please let your physician know if you are interested in this testing. It will require an appointment with our cadd technician. This is not an ultrasound performed by a physician in our office during a routine visit. SIGNS AND SYMPTOMS OF LABOR 1. Contractions every 10 minutes or more often 2. Clear, pink, or brownish fluid (water) leaking from vagina 3. Feeling that baby is pushing down, pressure 4. Low, dull backache 5. Cramps that feel like a period 6. Cramps with or without diarrhea If you notice any of the above symptoms, contact our office at [phone] and ask to speak with a nurse. After hours, you can call doctors registry at [phone] OR call [facility] at [phone] and ask to have the doctor stone banker paged. If you consider this an emergency, dial 8-6-5 or go to your nearest emergency department. NEED HELP? Are you dealing with a violent or abusive relationship? Are you a victim of rape or sexual assult? Call [facility] ([place]) 24 hour Crisis Hotline: 430.627.6012 or 778-710-4143. MANUAL Your Guide to a Healthy manual is now on-line. Visit [email or web address] ncyGuide to download your free copy documented in this encounter [facility] 10-30-2022 Note HNO ID: [id number] Author: Tami Littlejohn RD Service: ? Author Type: Registered Dietitian Type: Progress Notes Filed: 10/30/2022 8:36 AM Note Text: [facility] Nutrition Therapy: Virtual Consult - Initial Assessment I have communicated my name and active licensure. The patient?s identity and physical location were verified at the time of this visit. Either the patient or their legal wireless sales representative has been informed of the risks and benefits of -- and alternatives to -- treatment through a remote evaluation and consents to proceed with the evaluation remotely. Nutrition Diagnosis: Altered nutrition-related lab values, related to, endocrine dysfunction and prgnancy, as evidenced by elevated blood sugars . RECOMMENDED MALNUTRITION DIAGNOSIS: NO MALNUTRITION IDENTIFIED NUTRITION CARE PLAN Nutrition Intervention 10/30/2022: modify type and amount of food or beverage Goals: Fasting glucose <95 mg/dL; 1 hr glucose ,140 mg/dL, 2 hr glucose ,120 mg/dL; mean glucose of 86 mg/dL. 1. Distribute carbohydrate evening throught out the day, Choose whole grain starches and grains, avoid white and refined grains and sources of concentration sugars . Carbohydrates are the starches, fruits and milk group and is defined as 15 grams per serving/choice. 2. Keep breakfast at 15-30 grams carbohydrate; Lunch 45 grams/3 carb choices and dinner 30 grams/2 carb choices (unless really hungry then OK to have 3 carb choices. and snacks 15-grams of carbohydrate, include healthy protein in meals and snacks. 3. Distribute meals and snacks every 2-3 hours. 4. Aim for 28 grams of fiber. 5. Limit saturated fat, choose lean proteins, healthy fast such as olive oil, canola oil, avocados, nuts/seeds, etc. 6. . Daily exercise of 30-60 minutes 7. Add an evening snack of one carb choice (15 grams) and protein 8. Change to triple zero Angolan yogurt 9. Ensure 3 servings dairy daily Ensure good sources of magnesium from a variety of seeds and dark greens such as spinach and [place] chard; soybeans and nuts almonds and chashews. Ensure good sources of zinc from lean beef, pumpkin and squash seeds, dark chocolate and cocoa powder, and peanuts Ensure good sources of Folic Acid from a variety of dark greens and seeds; soy beans and hudson sprouts. Beans such as Rueda, garbonzo and mung; asparagus and peanuts Ensure adequate vit D-fatty fish, fortified cereal and soy products, meats, dairy products, eggs and mushrooms Ensure adequate Y88-loao fatty fish, seafood and meats; cheese and eggs Ensure adequate sources of omega 3 fatty acids from fatty fish, kilo and flax seeds and eggs Ensure adequate calcium-aim for 3-4 servings of low fat/fat free dairy daily. Aim for moderate exercise regularly-continue to do regular activities. May need to change activities during avoiding high impact and higher stress activities. Nutrition Monitoring AND Evaluation: blood sugars in target range Need for Follow up: ~3 weeks Patient presents for initial MNT as relates to gestational diabetes currently at 32 weeks. Does have a family history of diabetes. Has made changes to diet, stopped sweet tea, eating more fruit. Had craved fast food in first and second trimester. Current intake noted for eating three meals and an afternoon snack. Beverages currently appropriate. Exercise and activity meeting recommendations with very active job. 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 Resting Metabolic Rate: 1175 Malnutrition Screening Significant unintentional weight loss? No Eating less than 75% of usual intake for more than 2 weeks? No Potential Signs of Inflammation: no identifiable sources Education Materials Provided: Healthy You - Planning Healthy Meals; Gestational Diabetes Booklet READINESS TO LEARN Cognitive ability: Alert and oriented Motivation to learn: Interested Family support: Unable to assess - Family not present Instruction provided to: Patient Patient learns best by: Individual Instruction Factors affec (more content not included)... [facility] 10-30-[address] - 10/30/2022 8:33 AM EDT Goals: Fasting glucose <95 mg/dL; 1 hr glucose ,140 mg/dL, 2 hr glucose ,120 mg/dL; mean glucose of 86 mg/dL. 1. Distribute carbohydrate evening throught out the day, Choose whole grain starches and grains, avoid white and refined grains and sources of concentration sugars . Carbohydrates are the starches, fruits and milk group and is defined as 15 grams per serving/choice. 2. Keep breakfast at 15-30 grams carbohydrate; Lunch 45 grams/3 carb choices and dinner 30 grams/2 carb choices (unless really hungry then OK to have 3 carb choices. and snacks 15-grams of carbohydrate, include healthy protein in meals and snacks. 3. Distribute meals and snacks every 2-3 hours. 4. Aim for 28 grams of fiber. 5. Limit saturated fat, choose lean proteins, healthy fast such as olive oil, canola oil, avocados, nuts/seeds, etc. 6. . Daily exercise of 30-60 minutes 7. Add an evening snack of one carb choice (15 grams) and protein 8. Change to triple zero Angolan yogurt 9. Ensure 3 servings dairy daily Ensure good sources of magnesium from a variety of seeds and dark greens such as spinach and cost[place] chard; soybeans and nuts almonds and chashews. Ensure good sources of zinc from lean beef, pumpkin and squash seeds, dark chocolate and cocoa powder, and peanuts Ensure good sources of Folic Acid from a variety of dark greens and seeds; soy beans and hudson sprouts. Beans such as Rueda, garbonzo and mung; asparagus and peanuts Ensure adequate vit D-fatty fish, fortified cereal and soy products, meats, dairy products, eggs and mushrooms Ensure adequate F31-imbf fatty fish, seafood and meats; cheese and eggs Ensure adequate sources of omega 3 fatty acids from fatty fish, kilo and flax seeds and eggs Ensure adequate calcium-aim for 3-4 servings of low fat/fat free dairy daily. Aim for moderate exercise regularly-continue to do regular activities. May need to change activities during avoiding high impact and higher stress activities. documented in this encounter [facility] 10-30-2022 History of Present illness Narrative [facility] Nutrition Therapy: Virtual Consult - Initial Assessment I have communicated my name and active licensure. The patient s identity and physical location were verified at the time of this visit. Either the patient or their legal wireless sales representative has been informed of the risks and benefits of -- and alternatives to -- treatment through a remote evaluation and consents to proceed with the evaluation remotely. Nutrition Diagnosis: Altered nutrition-related lab values, related to, endocrine dysfunction and prgnancy, as evidenced by elevated blood sugars . RECOMMENDED MALNUTRITION DIAGNOSIS: NO MALNUTRITION IDENTIFIED NUTRITION CARE PLAN Nutrition Intervention 10/30/2022: modify type and amount of food or beverage Goals: Fasting glucose <95 mg/dL; 1 hr glucose ,140 mg/dL, 2 hr glucose ,120 mg/dL; mean glucose of 86 mg/dL. 1. Distribute carbohydrate evening throught out the day, Choose whole grain starches and grains, avoid white and refined grains and sources of concentration sugars . Carbohydrates are the starches, fruits and milk group and is defined as 15 grams per serving/choice. 2. Keep breakfast at 15-30 grams carbohydrate; Lunch 45 grams/3 carb choices and dinner 30 grams/2 carb choices (unless really hungry then OK to have 3 carb choices. and snacks 15-grams of carbohydrate, include healthy protein in meals and snacks. 3. Distribute meals and snacks every 2-3 hours. 4. Aim for 28 grams of fiber. 5. Limit saturated fat, choose lean proteins, healthy fast such as olive oil, canola oil, avocados, nuts/seeds, etc. 6. . Daily exercise of 30-60 minutes 7. Add an evening snack of one carb choice (15 grams) and protein 8. Change to triple zero Angolan yogurt 9. Ensure 3 servings dairy daily Ensure good sources of magnesium from a variety of seeds and dark greens such as spinach and [place] r[place] chard; soybeans and nuts almonds and chashews. Ensure good sources of zinc from lean beef, pumpkin and squash seeds, dark chocolate and cocoa powder, and peanuts Ensure good sources of Folic Acid from a variety of dark greens and seeds; soy beans and hudson sprouts. Beans such as Rueda, garbonzo and mung; asparagus and peanuts Ensure adequate vit D-fatty fish, fortified cereal and soy products, meats, dairy products, eggs and mushrooms Ensure adequate X97-ogor fatty fish, seafood and meats; cheese and eggs Ensure adequate sources of omega 3 fatty acids from fatty fish, kilo and flax seeds and eggs Ensure adequate calcium-aim for 3-4 servings of low fat/fat free dairy daily. Aim for moderate exercise regularly-continue to do regular activities. May need to change activities during avoiding high impact and higher stress activities. Nutrition Monitoring & Evaluation: blood sugars in target range Need for Follow up: ~3 weeks Patient presents for initial MNT as relates to gestational diabetes currently at 32 weeks. Does have a family history of diabetes. Has made changes to diet, stopped sweet tea, eating more fruit. Had craved fast food in first and second trimester. Current intake noted for eating three meals and an afternoon snack. Beverages currently appropriate. Exercise and activity meeting recommendations with very active job. 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 Resting Metabolic Rate: 1175 Malnutrition Screening Significant unintentional weight loss? No Eating less than 75% of usual intake for more than 2 weeks? No Potential Signs of Inflammation: no identifiable sources Education Materials Provided: Healthy You - Planning Healthy Meals; Gestational Diabetes Booklet READINESS TO LEARN Cognitive ability: Alert and oriented Motivation to learn: Interested Family support: Unable to assess - Family not present Instruction provided to: Patient Patient learns best by: Individual Instruction Factors affecting learning: None Physical limitations affecting learning: None Referred by: Chapito VALLECILLO Billing Type: Initial Assess/15 min 2 units SIGNATURE: Tami Littlejohn RD PATIENT NAME: Kathleen Diaz DATE: 10/30/2022 TIME: 7:56 AM documented in this encounter [facility] 10-18-2022 Miscellaneous Notes MONI-S: Kathleen Diaz is a 32 year old female who presents at 12/25/2022, by Last Menstrual Period for a routine visit. Good FM. Denies headache, visual changes, chest pain, shortness of breath, vaginal bleeding, leakage of fluid, or dysuria. Feeling well, no complaints. O: See flow sheet Gen: No apparent distress Abd: Gravid, nontender S=D, watch fundal height Overall good glycemic control, log sent and reviewed by ASSESSMENT/PLAN: 1. 30 weeks gestation of P: 1) PTL precautions reviewed and when to call 2) RTO in 2 weeks 3) Growth US every 4 weeks for GDM 4) Patient did not continue BG log and misunderstanding. Reviewed importance of testing and she will restart. Referral to technical program manager. She declined diabetic education. Reviewed the diagnosis, management, and risks/implications of GDM in detail. We reviewed the and maternal risks including macrosomia, shoulder dystocia/ injury, delivery, preeclampsia and IUFD. We reviewed risks of hypoglycemia, hyperbilirubinemia, and NICU admission. We reviewed the importance of strict glycemic control to optimize maternal and outcomes. Reviewed healthy diet goals and ADA diet. Recommend she continue serial BG monitoring and we reviewed glycemic targets/goals for (fasting <95 and 2 hour postprandial of <120 respectively). She would like to test at 1hr due to not feeling well waiting 2hrs, reviewed goal less than 140. We reviewed that while she may achieve appropriate glycemic control with dietary modification alone, as many as ~30-50% of women require insulin to achieve appropriate glycemic control. To send BG log weekly. 5) Further discussion with patient regarding family history. Patient mother and grandmother never trial of labor and were given primary section. Reviewed with patient although we can have an idea that vaginal is unlikely with certain pelvic types, it is not absolute and that unless medically indicated I would not recommend a primary section and that family history without a trial is not a good indicator of her potential outcomes. Will continue to have discussions and said that even with pelvic evaluation it still does not always mean that vaginal is not an option or that we can predict her outcome. Gina Uriarte APRN.CNM documented in this encounter [facility] 10-18-2022 Instructions Gina Uriarte APRN.CNM - 10/18/2022 1:09 PM EDT General Nutrition Visit To schedule an Outpatient Nutrition Therapy Appointment with a Registered Dietitian: Stop at the front office director and ask Patient Java Golden Gate Developer to schedule appointment OR Call: Nutrition Therapy- 8a-4pm : [phone] [facility] Call Center- 24 hours/day, 7 days/week : [phone] [place] Centralized [phone] Please check with your insurance provider or [facility] Financial Counselor ([phone]) to ensure insurance coverage. SIGNS AND SYMPTOMS OF LABOR 1. Contractions every 10 minutes or more often 2. Clear, pink, or brownish fluid (water) leaking from vagina 3. Feeling that baby is pushing down, pressure 4. Low, dull backache 5. Cramps that feel like a period 6. Cramps with or without diarrhea If you notice any of the above symptoms, contact our office at [phone] and ask to speak with a nurse. After hours, you can call doctors registry at [phone] OR call [facility] at [phone] and ask to have the doctor stone banker paged. If you consider this an emergency, dial 9-1-8 or go to your nearest emergency department. NEED HELP? Are you dealing with a violent or abusive relationship? Are you a victim of rape or sexual assult? Call [facility] ([place]) 24 hour Crisis Hotline: 414.661.6500 or 116-981-0093. MANUAL Your Guide to a Healthy manual is now on-line. Visit [email or web address] ncyGuide to download your free copy documented in this encounter [facility] 10-13-2022 Miscellaneous Notes Faxed [facility] To RR to sign. Kathleen Rasmussen RN documented in this encounter [facility] 10-04-2022 Note HNO ID: [id number] Author: Ibis Mtz MA Service: ? Author Type: Data Collection Associate Type: Progress Notes Filed: 10/04/2022 4:26 PM Note Text: Patient identified by name and date of . Kathleen Diaz presents today for a vaccination of Tdap. Patient denies an allergy to latex: yes Patient denies a severe (life-threatening) allergy to a previous dose of Tdap, DTP, DTaP, DT or Td vaccine. Yes Patient denies history of epilepsy or neurological problems: Yes Patient is afebrile and denies being moderately or severely ill: Yes Patient denies history of Guillain-[place] Syndrome (a severe paralytic illness): Yes Tdap Adacel injection was given without incident. See immunizations for details of immunizations administered today. VIS sheet provided: Yes Provider Amara Pizano CNM was present in office at time of injection. Ibis Mtz MA [facility] 09-19-2022 Miscellaneous Notes Order filed. Tracy Paris APRN.TYRA Patient called in regarding lab work too. Reviewed the CBC and 1 hour glucose results with her. Discussed needing 3 hour GTT and lab appointment scheduled. Please file 3 hour glucose order. Leah Esposito RN 26w0d Referring to CBC results. documented in this encounter [facility] 09-13-2022 Miscellaneous Notes MONI-S: Kathleen Diaz is a 32 year old female who presents at 25w2d with SHIREEN:12/25/2022, by Last Menstrual Period for a routine visit. Good FM. Denies headache, visual changes, chest pain, shortness of breath, vaginal bleeding, leakage of fluid, or dysuria. Feeling well, no complaints. O: See flow sheet Gen: No apparent distress Abd: Gravid, nontender S=D, 17 lb TWG ASSESSMENT/PLAN: 1. 25 weeks gestation of P: 1) PTL precautions reviewed and when to call 2) RTO in 3 weeks 3) 1hr GCT, CBC and RPR next visit. Would like to get this done at 26 weeks due to anxiety. 4) Tdap next visit. 5) Has not signed up for CBE. 6) Continue ASA Gina Uriarte APRN.CNM documented in this encounter [facility] 09-13-2022 Instructions Gina Uriarte APRN.CNM - 09/13/2022 3:09 PM EDT SEQUENTIAL SCREENINGS The [facility] offers sequential screenings for women who are interested in screenings for chromosomal abnormalities and certain defects during a . The sequential screen combines ultrasound and blood tests to determine the risk of chromosomal abnormalities, including Down's Syndrome (Trisomy 21) and Trisomy 18, as well as open neural tube defects including spina bifida. Ultrasound examination is performed between 11 weeks and 13 weeks gestational age. Blood tests are drawn after the ultrasound and again later in the between 15 and 21 weeks gestational age. Please let your physician know if you are interested in this testing. It will require an appointment with our cadd technician. This is not an ultrasound performed by a physician in our office during a routine visit. SIGNS AND SYMPTOMS OF LABOR 1. Contractions every 10 minutes or more often 2. Clear, pink, or brownish fluid (water) leaking from vagina 3. Feeling that baby is pushing down, pressure 4. Low, dull backache 5. Cramps that feel like a period 6. Cramps with or without diarrhea If you notice any of the above symptoms, contact our office at [phone] and ask to speak with a nurse. After hours, you can call doctors registry at [phone] OR call [facility] at [phone] and ask to have the doctor stone banker paged. If you consider this an emergency, dial 9-- or go to your nearest emergency department. NEED HELP? Are you dealing with a violent or abusive relationship? Are you a victim of rape or sexual assult? Call [facility] ([place]) 24 hour Crisis Hotline: 127.632.6474 or 800-361-7369. MANUAL Your Guide to a Healthy manual is now on-line. Visit [email or web address] ncyGuide to download your free copy ROUTINE GLUCOSE SCREENING IN can cause a woman who has perfectly normal blood sugars to turn (temporarily) diabetic, otherwise known as having gestational diabetes. This is because hormones from the placenta sometimes interfere with the action of insulin, the hormone responsible for the regulation of blood sugar. Gestational diabetes can have no symptoms, yet can complicate the . Identifying who has developed diabetes of helps the physician protect the fetus from the bad effects of high maternal blood sugars. Since you cannot tell who may become diabetic in , most practitioners test all women for gestational diabetes. The test isn't done until the early third trimester, because many women who will develop gestational diabetes don't get it until late in the . Two stages of glucose tolerance testing One-hour glucose testing This is a screening test done around 24-28 weeks gestation. We ask you to drink a solution of sugar (glucose) and then, one hour later, get blood drawn to check the glucose level. This tests how your body has handled the sugar solution. If the blood sugar level is over a certain value, more definitive testing is usually needed. Three-hour glucose tolerance test There is some overlap in blood sugar results between women with gestational diabetes and women who are not diabetic. The one-hour glucose test really just identifies the group of mothers who need to proceed to the more complicated (and more definitive) oral glucose tolerance test. This test usually requires a three-day special diet, followed by drinking more of the glucose solution. The blood is drawn four times: once before drinking the glucose (when she is fasting) then at one, two and three hours after the glucose solution is consumed. If two values are above a certain threshold, gestational diabetes is diagnosed. HOW TO TAKE THIS TEST At [facility], the procedure is as follows: come about 15 minutes early for your 28 week visit. Don't eat anything sugary that day, but complete fasting is not necessary. Go to the lab at A-15 or S-15, tell them your name and let them watch you drink the Glucola. They will tell you went to come back for the blood draw. IF THEY DON'T HAVE THE ORDER IN THE COMPUTER--go to a house phone, call [phone] or [phone] and ask the nurse to put the order in. After drinking the glucola, come to your regular appointment, making sure you return to the lab at the right time. You may call our office for the results the next day, if you are interested: [phone]. We will call you if further testing is required. documented in this encounter [facility] 08-16-2022 Instructions Balbir Berry [facility] - 08/16/2022 2:15 PM EDT SEQUENTIAL SCREENINGS The [facility] offers sequential screenings for women who are interested in screenings for chromosomal abnormalities and certain defects during a . The sequential screen combines ultrasound and blood tests to determine the risk of chromosomal abnormalities, including Down's Syndrome (Trisomy 21) and Trisomy 18, as well as open neural tube defects including spina bifida. Ultrasound examination is performed between 11 weeks and 13 weeks gestational age. Blood tests are drawn after the ultrasound and again later in the between 15 and 21 weeks gestational age. Please let your physician know if you are interested in this testing. It will require an appointment with our cadd technician. This is not an ultrasound performed by a physician in our office during a routine visit. SIGNS AND SYMPTOMS OF LABOR 1. Contractions every 10 minutes or more often 2. Clear, pink, or brownish fluid (water) leaking from vagina 3. Feeling that baby is pushing down, pressure 4. Low, dull backache 5. Cramps that feel like a period 6. Cramps with or without diarrhea If you notice any of the above symptoms, contact our office at [phone] and ask to speak with a nurse. After hours, you can call doctors registry at [phone] OR call [facility] at [phone] and ask to have the doctor stone banker paged. If you consider this an emergency, dial 9--3 or go to your nearest emergency department. NEED HELP? Are you dealing with a violent or abusive relationship? Are you a victim of rape or sexual assult? Call [facility] ([place]) 24 hour Crisis Hotline: 808.224.2704 or 661-136-5997. MANUAL Your Guide to a Healthy manual is now on-line. Visit [email or web address] ncyGuide to download your free copy documented in this encounter [facility] 08-16-2022 Miscellaneous Notes MONI-S: Centering Group visit Kathleen Diaz is a 32 year old female who presents at 21w2d with SHIREEN:12/25/2022, by Last Menstrual Period for a routine visit. Good FM. Denies headache, visual changes, chest pain, shortness of breath, vaginal bleeding, leakage of fluid, or dysuria. Feeling well, no complaints. O: See flow sheet Gen: No apparent distress Abd: Gravid, nontender S=D, 9 lb TWG P: 1) PTL precautions reviewed and when to call 2) RTO in 4 weeks 3) Continue ASA 4) Reviewed CBE and classes 5) Anatomy US completed Gina Uriarte APRN.CNM documented in this encounter [facility] 08-07-2022 Miscellaneous Notes DM- Pt doing well today. Denies Vaginal Bleeding, Leaking fluid, or contractions. Pt reports good movement. Anatomy us reviewed- WNL- GIRL . RTO 4 wks. Anny Rivera MD documented in this encounter [facility] 08-07-2022 Instructions Ibis Mtz MA - 08/07/2022 3:27 PM EDT SEQUENTIAL SCREENINGS The [facility] offers sequential screenings for women who are interested in screenings for chromosomal abnormalities and certain defects during a . The sequential screen combines ultrasound and blood tests to determine the risk of chromosomal abnormalities, including Down's Syndrome (Trisomy 21) and Trisomy 18, as well as open neural tube defects including spina bifida. Ultrasound examination is performed between 11 weeks and 13 weeks gestational age. Blood tests are drawn after the ultrasound and again later in the between 15 and 21 weeks gestational age. Please let your physician know if you are interested in this testing. It will require an appointment with our cadd technician. This is not an ultrasound performed by a physician in our office during a routine visit. SIGNS AND SYMPTOMS OF LABOR 1. Contractions every 10 minutes or more often 2. Clear, pink, or brownish fluid (water) leaking from vagina 3. Feeling that baby is pushing down, pressure 4. Low, dull backache 5. Cramps that feel like a period 6. Cramps with or without diarrhea If you notice any of the above symptoms, contact our office at [phone] and ask to speak with a nurse. After hours, you can call doctors registry at [phone] OR call [facility] at [phone] and ask to have the doctor stone banker paged. If you consider this an emergency, dial 9-1-1 or go to your nearest emergency department. NEED HELP? Are you dealing with a violent or abusive relationship? Are you a victim of rape or sexual assult? Call [facility] ([facility] 24 hour Crisis Hotline: 413.278.5828 or 614-703-5862. MANUAL Your Guide to a Healthy manual is now on-line. Visit [email or web address] ncyGuide to download your free copy documented in this encounter [facility] 07-10-2022 Miscellaneous Notes MONI-S: Kathleen Diaz is a 32 year old female who presents at 16w0d with SHIREEN:12/25/2022, by Last Menstrual Period for a routine visit. Feeling some movement. Denies headache, visual changes, chest pain, shortness of breath, vaginal bleeding, leakage of fluid, or dysuria. Feeling well, no complaints. O: See flow sheet Gen: No apparent distress Abd: Gravid, nontender ASSESSMENT/PLAN: 1. 16 weeks gestation of P: 1) PTL precautions reviewed and when to call 2) RTO in 4 weeks 3) ASA 162mg PO once daily continue 4) No further zofran 5) Reviewed centering and uncertain at this time. 6) AFP today Gina Uriarte APRN.CNM documented in this encounter [facility] 07-10-2022 Instructions Gina Uriarte APRN.CNM - 07/10/2022 2:20 PM EST Magnesium Citrate or glycinate 400mg by mouth once daily at bedtime [facility]Pregnancy at [facility] CenteringPregnancy is care that includes a traditional visit with additional time and attention in a group setting. You will meet with your provider and other women who are due near the same time for 10 sessions during your . CenteringPregnancy is a way for you to share learning and experiences with other women and to be an active participant in your own healthcare. What do CenteringPregnancy appointments usually include? ? Your care visit - Follows standard visit schedule ? Your weight, blood pressure, and heart rate monitoring ? Important information and resources for you and your baby ? Time to talk about , childbirth, and family with a group of women who are going through the same experiences *support person welcome! [place] [facility] [place] CenteringPregnancy group #1 with Gina Uriarte CNM and Amara Pizano CNM at 1 p.m. on these Wednesdays Due dates through January 2023 July 19 - Session 1 August 16 - Session 2 September 13 - Session 3 October 11 - Session 4 October 25 - Session 5 November 08 - Session 6 November 22 - Session 7 December 06 - Session 8 December 20 - January 03 - SEQUENTIAL SCREENINGS The [facility] offers sequential screenings for women who are interested in screenings for chromosomal abnormalities and certain defects during a . The sequential screen combines ultrasound and blood tests to determine the risk of chromosomal abnormalities, including Down's Syndrome (Trisomy 21) and Trisomy 18, as well as open neural tube defects including spina bifida. Ultrasound examination is performed between 11 weeks and 13 weeks gestational age. Blood tests are drawn after the ultrasound and again later in the between 15 and 21 weeks gestational age. Please let your physician know if you are interested in this testing. It will require an appointment with our cadd technician. This is not an ultrasound performed by a physician in our office during a routine visit. SIGNS AND SYMPTOMS OF LABOR 1. Contractions every 10 minutes or more often 2. Clear, pink, or brownish fluid (water) leaking from vagina 3. Feeling that baby is pushing down, pressure 4. Low, dull backache 5. Cramps that feel like a period 6. Cramps with or without diarrhea If you notice any of the above symptoms, contact our office at [phone] and ask to speak with a nurse. After hours, you can call doctors registry at [phone] OR call [facility] at [phone] and ask to have the doctor stone banker paged. If you consider this an emergency, dial 9-1-7 or go to your nearest emergency department. NEED HELP? Are you dealing with a violent or abusive relationship? Are you a victim of rape or sexual assult? Call [facility] [place] ([facility] 24 hour Crisis Hotline: 885.818.4690 or 162-015-9382. MANUAL Your Guide to a Healthy manual is now on-line. Visit [email or web address] to download your free copy documented in this encounter [facility] 06-27-2022 Miscellaneous Notes Called Kathleen Diaz and identified by name and date of . Kathleen Diaz was informed of negative Non-Invasive Testing (NIPT) results for Trisomy 21, Trisomy 18 and Trisomy 13. Patient was also notified of the result of no sex chromosome aneuploidy detected. Patient wishes to know sex, which is reported as: female. Reviewed with patient Kathleen Diaz that NIPT is considered screening and not diagnostic, so this result greatly reduces, but does not eliminate the chance that the fetus could have trisomy 21, trisomy 18, trisomy 13 or sex chromosome aneuploidy. Kathleen Diaz indicated understanding this information. Patient advised to follow up with AFP neural tube defect screening (blood draw) at 16-18 weeks gestation and 18-20 week detailed anatomy ultrasound. Also instructed to follow-up with Primary OB Provider. Racheal Curry RN documented in this encounter [facility] 06-19-2022 Note HNO ID: [id number] Author: Leah Esposito RN Service: ? Author Type: ? Type: Progress Notes Filed: 06/19/2022 1:27 PM Note Text: Patient here for First Trimester Screening. See ultrasound report for details. Options for genetic screening and diagnosis discussed with the patient. Patient opts for first trimester screening and the sequential screening protocol. Limitations of screening tests discussed with the patient. Juanita Lockwood MD [facility] 06-19-2022 Note HNO ID: [id number] Author: Juanita Lockwood MD Service: ? Author Type: Physician Type: Progress Notes Filed: 06/19/2022 1:27 PM Note Text: INITIAL OB ASSESSMENT OB Provider: Laura Villavicencio Ma HPI: Kathleen Diaz is a 32 year old female here to establish Obstetrical Care. Patient's last menstrual period was 03/20/2022 (exact date). from OB Dating Form. Cycle length: 28-30 days Complaints: nausea improving now was planned. OB History T0 L0 SAB0 IAB0 Ectopic0 Multiple0 Live Births0 Prior : never History of 4th degree laceration: No Patient's Risk Screening for delivery: History of abnormal pap: No Prior treatment for cervical dysplasia: none. 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 Patient BMI over 30? 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 No current facility-administered medications on file prior to visit. Review of Systems: GENERAL: Negative for: Fever or Chills HEENT: Negative for: Headache, Impaired Vision, Ringing in Ears, Nosebleeds NECK: Negative for: Swelling, Pain, Stiffness RESPIRATORY: Negative for: Cough, Shortness of breath, Wheezing GASTROINTESTINAL: Negative for: Heartburn, Constipation, Diarrhea, Blood in stool, Vomiting MUSCULOSKELETAL: Negative for: Muscle or joint pain, stiffness, Joint swelling NEUROLOGIC/PSYCHIATRIC: Negative for: Weakness, Paralysis, Numbness, Tingling, Tremor, , Depression, Memory loss. Anxiety higher since found out she was . Stopped meds about 10 months ago. Doesn't want to restart. No thoughts of harming self/others SKIN: Negative for: Rash, Itching GENITOURINARY: Negative for: vaginal itching, vaginal discharge, hematuria or dysuria PHYSICAL EXAM: LMP 03/20/2022 GENERAL: pleasant female in no apparent distress DERMATOLOGY: Normal, without lesions, non-icteric, and non-hirsute NECK: Supple, full range of motion, no adenopathy, and thyroid normal CHEST: Normal inspiratory effort BREAST: soft, non-tender, symmetric, no dominant mass, normal nipple-areolar complex, no lymphadenopathy, and no nipple discharge ABDOMEN: soft, non-tender, and no masses NEURO: alert and oriented x3,exam grossly non-focal PELVIS: External genitalia normal without lesions. Perineal body intact. No vaginal or cervical lesions. Cervix closed. Uterus 13 week size. No adnexal masses or tenderness. Clinical Pelvimetry: Pelvimetry clinically assessed as adequate OB Risk Screening: Completed, no positive findings documented. ASSESSMENT: 32 year old at 13w0d wks gestational age PLAN: 1) Patient oriented to practice. Discussed nutrition, folic acid supplementation, dietary guidelines, exercise, smoking, alcohol, caffeine, and drug use. Discussed routine OB labs including STD/HIV. Discussed aneuploidy screening options including serum screening and nuchal translucency. Desires NIPT. D/w her limitations of screening. CF carrier screening discussed and declined. 2) ASA candidate- 81 mg two a day 3) anxiety- does not want to restart meds. D/ wher recommend counseling and other self help measures. Hydroxyzine prn reviewed, does accept rx for this. Follow up in 3 weeks or sooner prn. Juanita Lockwood MD [facility] 06-19-2022 History of Present illness Narrative Patient here for First Trimester Screening. See ultrasound report for details. Options for genetic screening and diagnosis discussed with the patient. Patient opts for first trimester screening and the sequential screening protocol. Limitations of screening tests discussed with the patient. Juanita Lockwood MD INITIAL OB ASSESSMENT OB Provider: Laura Villavicencio Ma HPI: Kathleen Diaz is a 32 year old female here to establish Obstetrical Care. Patient's last menstrual period was 03/20/2022 (exact date). from OB Dating Form. Cycle length: 28-30 days Complaints: nausea improving now was planned. OB History T0 L0 SAB0 IAB0 Ectopic0 Multiple0 Live Births0 Prior : never History of 4th degree laceration: No Patient's Risk Screening for delivery: History of abnormal pap: No Prior treatment for cervical dysplasia: none. 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 Patient BMI over 30? 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 No current facility-administered medications on file prior to visit. Review of Systems: GENERAL: Negative for: Fever or Chills HEENT: Negative for: Headache, Impaired Vision, Ringing in Ears, Nosebleeds NECK: Negative for: Swelling, Pain, Stiffness RESPIRATORY: Negative for: Cough, Shortness of breath, Wheezing GASTROINTESTINAL: Negative for: Heartburn, Constipation, Diarrhea, Blood in stool, Vomiting MUSCULOSKELETAL: Negative for: Muscle or joint pain, stiffness, Joint swelling NEUROLOGIC/PSYCHIATRIC: Negative for: Weakness, Paralysis, Numbness, Tingling, Tremor, , Depression, Memory loss. Anxiety higher since found out she was . Stopped meds about 10 months ago. Doesn't want to restart. No thoughts of harming self/others SKIN: Negative for: Rash, Itching GENITOURINARY: Negative for: vaginal itching, vaginal discharge, hematuria or dysuria PHYSICAL EXAM: LMP 03/20/2022 GENERAL: pleasant female in no apparent distress DERMATOLOGY: Normal, without lesions, non-icteric, and non-hirsute NECK: Supple, full range of motion, no adenopathy, and thyroid normal CHEST: Normal inspiratory effort BREAST: soft, non-tender, symmetric, no dominant mass, normal nipple-areolar complex, no lymphadenopathy, and no nipple discharge ABDOMEN: soft, non-tender, and no masses NEURO: alert and oriented x3,exam grossly non-focal PELVIS: External genitalia normal without lesions. Perineal body intact. No vaginal or cervical lesions. Cervix closed. Uterus 13 week size. No adnexal masses or tenderness. Clinical Pelvimetry: Pelvimetry clinically assessed as adequate OB Risk Screening: Completed, no positive findings documented. ASSESSMENT: 32 year old at 13w0d wks gestational age PLAN: 1) Patient oriented to practice. Discussed nutrition, folic acid supplementation, dietary guidelines, exercise, smoking, alcohol, caffeine, and drug use. Discussed routine OB labs including STD/HIV. Discussed aneuploidy screening options including serum screening and nuchal translucency. Desires NIPT. D/w her limitations of screening. CF carrier screening discussed and declined. 2) ASA candidate- 81 mg two a day 3) anxiety- does not want to restart meds. D/ wher recommend counseling and other self help measures. Hydroxyzine prn reviewed, does accept rx for this. Follow up in 3 weeks or sooner prn. Juanita Lockwood MD documented in this encounter [facility] 06-19-2022 Instructions Leah Esposito RN - 06/19/2022 10:44 AM EST Please select the following link to access the [facility] Your Guide to a Healthy . [email or web address] SEQUENTIAL TESTING PROCESS Sequential Screen First Trimester Today you are currently: 13w0d weeks 06/19/2022: Ultrasound and blood test. Sequential Screen Second Trimester (16-17 Weeks Gestation) When you are called with your results, the nurse will give the optimal draw dates for the Sequential screen second trimester. Blood testing can be done at any [facility] lab. Please report to the any woods overseer office front office director for the Sequential Part 2 requisition and order before reporting to the lab. Your weight will need to be documented for testing. Please note: -No appointment is need for your second blood draw. -Office hours are 8 am to 4:30 pm. -Please have testing done prior to 12 noon on Sunday's -Once the sequential testing is started, in the first trimester the only follow-up will be for the sequential screen second trimester. Please don't have a Quad screen ordered by another provider. If you or your Provider have any questions please call your maternal medicine office, for east side please call [phone] or for the West side call [phone] and ask for the the nurse. Thank you. documented in this encounter [facility] 06-08-2022 Miscellaneous Notes NT filed Patient had PNOB appointment today . She is 11w3d . She has had care prior to today [place]. Her new OB with Dr. Lockwood is scheduled for June 19. She would like to do aneuploidy screening. Please sign order for ultrasound if you are in agreement and we can schedule for June 19. Patient prefers 3:00 (after Dr Burgos's appt) appointment or can come in and do [address] Tony appointment. COIP. Patient will check my chart for appointment documented in this encounter [facility] 06-08-2022 Miscellaneous Notes DISTANCE HEALTH VISIT This Team Access Model visit is a phone encounter. It required patient-provider interaction for the medical decision making as documented below. Kathleen Diaz is a 32 year old female seen for PNOB visit. Patient is transferring care from [place]. She states that she was signed a release of records form June 06. She states that she has had 1 visit there and an ultrasound. She states no blood work has been done. She is 11 weeks 3 days by dates. Desires aneuploidy screening. See telephone note dated June 08. Contact information for [facility] given to patient to check on insurance coverage. Patient has a history of anxiety diagnosed 2 years ago. She states she has been off medication for 1 year and feels she is doing well off medication. Denies ever having any depression. Patient considering genetic carrier screening testing. Contact information for [facility] given to patient to check on insurance coverage.Debo Perez RN documented in this encounter [facility] 05-19-2022 History of Present illness Narrative Kathleen is a 32-year-old 1 para 0 who comes in for confirmation of . The patient reports that this was a planned . Patient reports that she has been dry heaving in the morning but no vomiting. She reports she is tolerating food but is very nauseous with a lot of foods. Patient denies any cramping bleeding or abnormal discharge. Patient reports that occasionally she can be prone to headaches but has not experienced that in the . Patient reports she was previously about 6 months ago on acne and anxiety medications but stopped them since she was trying to conceive. Currently she is not taking any medications. [facility] [employer] Work Phone: 02-14-2022 Note 56 Date of Procedure: 02/14/2022 Pathologist: [facility], Cytology Date Reported: 02/21/2022 Date Received: 02/14/2022 Submitting Physician: ALBIN JAVIER, DO FINAL CYTOLOGICAL INTERPRETATION A. THINPREP PAP CERVICAL: Specimen adequacy: SATISFACTORY FOR EVALUATION. Quality Indicator: Endocervical/transformation zone component is present. General Categorization: NEGATIVE FOR INTRAEPITHELIAL LESION OR MALIGNANCY. Descriptive Interpretation: FUNGAL ORGANISMS MORPHOLOGICALLY CONSISTENT WITH DAVID SPECIES. HIGH RISK HPV TEST RESULT: HPV GENOTYPE 16 NEGATIVE HPV GENOTYPE 18 NEGATIVE HPV GENOTYPE OTHER NEGATIVE Reference Range: Negative Testing for high-risk (HR) type of human papilloma virus (HPV) is performed by the [employer] maddi HPV Test. The maddi HPV Test is a qualitative polymerase chain reaction that amplifies DNA of HPV16, HPV18 and 12 other high-risk HPV types (31, 33, 35, 39, 45, 51, 52, 56, 58, 59, 66, and 68) associated with cervical cancer and its precursor lesions. A positive result indicates the presence of HPV DNA due to one or more of the 14 genotypes: 16, 18, 31, 33, 35, 39, 45, 51, 52, 56, 58, 59, 66, and 68. Negative results indicate HPV DNA concentrations are undetectable or below the pre-set threshold for detection. False negative results may be associated with unoptimized sampling. A negative HR HPV result does not exclude the possibility of future cytologic HSIL or underlying CIN2-3 or cancer. This test is approved for cervical specimens by the [place] Food and Drug Administration. Results of this test should be interpreted in conjunction with the patient?s Pap test results. Please refer to ASCCP current guidelines for the use of HPV DNA testing, result interpretation, and patient management. The performance of this test was verified by the Molecular Diagnostic Laboratory at [facility]. The lab is certified under the Clinical Laboratory Amendments of 1988 (CLIA 88) as qualified to perform high complexity clinical laboratory testing. This specimen has been analyzed by the TDXPrep Imaging System ([employer] an automated imaging and review system, which assists the laboratory in evaluating cells on ThinPrep Pap tests. Following automated imaging, selected portillo from every slide were reviewed by a electrical assembly technician and/or pathologist. Electronically Signed Out By [facility], Cytology//DDH By the signature on this report, the individual or group listed as making the Final Interpretation/Diagnosis certifies that they have reviewed this case. Diagnostic interpretation performed at [facility] [id number] [facility]. [place] [id number] Educational Note: Cervical cytology is a screening procedure primarily for squamous cancers and precursors and has associated false-negative and false-positive results as evidenced by published data. Your patient?s test should be interpreted in this context, together with patient?s history and clinical findings. Regular sampling and follow-up of unexplained clinical signs and symptoms are recommended to minimize false negative results. Clinical History Date of Last Menstrual Period: 01/27/2022 Other Clinical Conditions: COTEST HPV(Genotype) except for ASC-H, HSIL, Carcinoma - Include HPV Genotype testing Annual Clinical Diagnosis History: Screening for cervical cancer - (Z12.4); Women's annual routine gynecological examination - (Z01.419) Source of Specimen A: THINPREP PAP CERVICAL [facility] Department of Pathology [id number] [place] [id number] [facility] Encounter for screening of mother- Primary Unspecified screening [facility]* Diagnosis with care elsewhere, antepartum- Primary 13 weeks gestation of state, incidental Encounter for screening of mother Unspecified screening LUIS ANTONIO (generalized anxiety disorder) Generalized anxiety disorder [facility] Diagnosis Encounter for screening for nuchal translucency- Primary Encounter for screening of mother Unspecified screening [facility]* Diagnosis 16 weeks gestation of - Primary state, incidental Encounter for supervision of normal first in second trimester Supervision of normal first [facility]* Diagnosis Encounter for supervision of normal first in second trimester- Primary Supervision of normal first 20 weeks gestation of state, incidental [facility] Diagnosis with care elsewhere, antepartum- Primary History of anxiety Personal history of other mental disorder Encounter for supervision of normal first in second trimester Supervision of normal first 21 weeks gestation of state, incidental [facility]* Diagnosis 25 weeks gestation of - Primary state, incidental [facility] Diagnosis Abnormal glucose in , antepartum- Primary Abnormal maternal glucose tolerance, antepartum [facility]* Diagnosis 30 weeks gestation of - Primary state, incidental [facility]* Diagnosis Dietary counseling- Primary Dietary surveillance and counseling 30 weeks gestation of state, incidental [facility]* Diagnosis 32 weeks gestation of - Primary state, incidental [facility]* Diagnosis Maternal care for other (suspected) abnormality and damage, cardiac anomalies, other fetus- Primary [facility]* Diagnosis 34 weeks gestation of - Primary state, incidental Diet controlled gestational diabetes mellitus (GDM) in third trimester Anomaly of heart of fetus affecting , antepartum, single or unspecified fetus [facility] Diagnosis 36 weeks gestation of - Primary state, incidental Diet controlled gestational diabetes mellitus (GDM) in third trimester [facility] Diagnosis Suspected problem with growth not found- Primary 36 weeks gestation of state, incidental [facility]* Diagnosis Gestational diabetes mellitus, class A1- Primary Abnormal maternal glucose tolerance, complicating , childbirth, or the puerperium, unspecified as to episode of care Encounter for supervision of other normal in third trimester Suspected problem with growth not found with care elsewhere, antepartum 37 weeks gestation of state, incidental [facility]* Diagnosis 38 weeks gestation of - Primary state, incidental Gestational diabetes mellitus, class A1 Abnormal maternal glucose tolerance, complicating , childbirth, or the puerperium, unspecified as to episode of care LUIS ANTONIO (generalized anxiety disorder) Generalized anxiety disorder [facility] Diagnosis Gestational diabetes mellitus, class A1- Primary Abnormal maternal glucose tolerance, complicating , childbirth, or the puerperium, unspecified as to episode of care 39 weeks gestation of state, incidental documented [facility] this encounter [facility] [id number] presents for annual exam. Patient safe home denies abuse. Patient sexually active without concern. Patient like to control refill. Patient think about a baby in 1 year. Patient taken only one kid. Patient working in physical activity. Patient does have breast exams. Patient deniesany new lumps bumps masses. Patient has no other acute concerns. [place] [phone] [employer] Phone: Reason for referral (narrative)* Diagnostic Procedure Only (Routine) - Authorized Specialty Diagnoses / Procedures Referred By Jaja carr Referred To Contact [facility] Diagnoses Encounter for screening of mother Procedures NUCHAL TRANSLUCENCY WHI US NUCHAL TRANSLUCENCY 1ST GESTATION Madie Sanchez MD [address] [place] [address] [facility] [address] [place] [address] Referral ID Status Reason Start Date Expiration Date Visits Requested Visits Authorized [id number] Authorized Auto-Generat ed Referral 06/08/2022 06/08/2023 1 1 [facility] for referral (narrative)* Diagnostic Procedure Only (Routine) - Pending Review Specialty Diagnoses / Procedures Referred By Jaja carr Referred To Contact [facility] Diagnoses with care elsewhere, antepartum AMA (advanced maternal age) multigravida 35+, first trimester 13 weeks gestation of Procedures OBSTETRIC ULTRASOUND WHI US PREG UTERUS AFTER 1ST TRIMEST GESTATION Juanita Lockwood MD [address] [place] [address] [facility] [address] [place] [address] Referral ID Status Reason Start Date Expiration Date Visits Requested Visits Authorized [id number] Pending Review Auto-Generat ed Referral 06/19/2022 06/19/2023 1 1 [facility] for referral (narrative)* Diagnostic Procedure Only (Routine) - Authorized Specialty Diagnoses / Procedures Referred By Contac t Referred To Contact [facility] Diagnoses 30 weeks gestation of Procedures OBSTETRIC ULTRASOUND WHI US PREG UTERUS AFTER 1ST TRIMEST GESTATION Gina Uriarte APRN.CNM [address] [place] [address] [facility] [address] [place] [address] Referral ID Status Reason Start Date Expiration Date Visits Requested Visits Authorized [id number] Authorized Auto-Generat ed Referral 10/18/2022 10/18/2023 5 1 * Consult, Test, Treat (Routine) - Authorized Specialty Diagnoses / Procedures Referred By Contac t Referred To Contact Nutrition Diagnoses 30 weeks gestation of Procedures CONSULT TO NUTRITION THERAPY MEDICAL NUTRITION ASSMT&IVNTJ INDIV EACH 15 FL MEDICAL NUTRITION ASSMT&IVNTJ INDIV EACH 15 FL MEDICAL NUTRITION ASSMT&IVNTJ INDIV EACH 15 FL MEDICAL NUTRITION ASSMT&IVNTJ INDIV EACH 15 FL Gina Uriarte APRN.CNM [address] [place] [address] Referral ID Status Reason Start Date Expiration Date Visits Requested Visits Authorized [id number] Authorized PCP Requested Referral 10/18/2022 10/18/2023 1 1 [facility] Family History No Family History Records Found Grandparent Name Dates Details Family history of diabetes m ellitus(V18.0, Z83.3) Status:Active Family history of liver canc er(V16.0, Z80.0) Status:Active aunt Name Dates Details Family history of diabetes m ellitus(V18.0, Z83.3) Status:Active uncle Name Dates Details Family history of diabetes m ellitus(V18.0, Z83.3) Status:Active Brother Name Dates Details Family history of rheumatoid arthritis(V17.7, Z82.61) Status:Active Grandparent Name Dates Details Family history of diabetes m ellitus(V18.0, Z83.3) Status:Active Family history of liver canc er(V16.0, Z80.0) Status:Active aunt Name Dates Details Family history of diabetes m ellitus(V18.0, Z83.3) Status:Active uncle Name Dates Details Family history of diabetes m ellitus(V18.0, Z83.3) Status:Active Brother Name Dates Details Family history of rheumatoid arthritis(V17.7, Z82.61) Status:Active Unknown Family Member Name Dates Details Family history of rheumatoid arthritis: Brother(V17.7, Z82.61) Status:Active Family history of diabetes m ellitus: Grandparent, Aunt, Uncle(V18.0, Z83.3) Status:Active Family history of liver canc er: Grandparent(V16.0, Z80.0) Status:Active Unknown Family Member Name Dates Details Family history of rheumatoid arthritis: Brother(V17.7, Z82.61) Status:Active Family history of diabetes m ellitus: Grandparent, Aunt, Uncle(V18.0, Z83.3) Status:Active Family history of liver canc er: Grandparent(V16.0, Z80.0) Status:Active Unknown Family Member Name Dates Details Family history of rheumatoid arthritis: Brother(V17.7, Z82.61) Status:Active Family history of diabetes m ellitus: Grandparent, Aunt, Uncle(V18.0, Z83.3) Status:Active Family history of liver canc er: Grandparent(V16.0, Z80.0) Status:Active Unknown Family Member Name Dates Details Family history of rheumatoid arthritis: Brother(V17.7, Z82.61) Status:Active Family history of diabetes m ellitus: Grandparent, Aunt, Uncle(V18.0, Z83.3) Status:Active Family history of liver canc er: Grandparent(V16.0, Z80.0) Status:Active Summary Purpose Advance Directives No Advanced Directives Records FoundNo Advanced Directives Records FoundNo Advanced Directives Records FoundNo Advanced Directives Records FoundNo Advanced Directives Records Found Chief Complaint PT IS HERE TODAY FOR HER ANNUAL EXAM. LAST PAP WAS IN 2019. HAS NO CONCERNS. DOES A SELF BREAST CHECK. LMP: 01/12/2021T IS HERE TODAY FOR HER ANNUAL EXAM. HAS NO CONCERNS. DOES A SELF BREAST CHECK. LMP: 01/27/2022atient here today for amenorrhea. She has nausea/dry heaving, breast tenderness, and she notes dizz iness and lightheadedness through out the day. Periods come regular every month. First . LMP: 03/20/2022 Health Concerns Problem Noted Date OB Reminders 06/08/2022 Problem Noted Date OB Reminders 06/08/2022 Problem Noted Date OB Reminders 06/08/2022 Problem Noted Date OB Reminders 06/08/2022 Problem Noted Date OB Reminders 06/08/2022 Problem Noted Date OB Reminders 06/08/2022 Problem Noted Date OB Reminders 06/08/2022 Problem Noted Date OB Reminders 06/08/2022 Problem Noted Date OB Reminders 06/08/2022 Problem Noted Date OB Reminders 06/08/2022 Problem Noted Date OB Reminders 06/08/2022 Problem Noted Date OB Reminders 06/08/2022 Problem Noted Date OB Reminders 06/08/2022 Problem Noted Date Diagnosed Date OB Reminders 06/08/2022 Problem Noted Date Diagnosed Date OB Reminders 06/08/2022 Problem Noted Date Diagnosed Date OB Reminders 06/08/2022 Problem Noted Date Diagnosed Date OB Reminders 06/08/2022 Problem Noted Date Diagnosed Date OB Reminders 06/08/2022 Problem Noted Date Diagnosed Date OB Reminders 06/08/2022 Problem Noted Date Diagnosed Date OB Reminders 06/08/2022 Problem Noted Date Diagnosed Date OB Reminders 06/08/2022 Additional Source Comments INFORMATION SOURCE (unrecogn ized section and content) DATE CREATED AUTHOR AUTHOR'S ORGANIZ ATION 02/15/2022 [facility] DATE CREATED AUTHOR AUTHOR'S ORGANIZ ATION 05/22/2022 [facility] DATE CREATED AUTHOR AUTHOR'S ORGANIZ ATION 11/06/2022 [facility] DATE CREATED AUTHOR AUTHOR'S JOSE RAMON ATION 12/24/2022 [facility] Source Comments (unrecognize d section and content) In the event this informatio n is protected by the Federal Confidentiality of Alcohol and Drug Abuse Patient Records regulations: The Federal rules restrict any use of the information to criminally investigate or prosecute any alcohol or drug abuse patient.[facility] HospitalIn the event this information is protected by the Federal Confidentiality of Alcohol and Drug Abuse Patient Records regulations: The Federal rules restrict any use of the information to criminally investigate or prosecute any alcohol or drug abuse patient.[facility] HospitalIn the event this information is protected by the Federal Confidentiality of Alcohol and Drug Abuse Patient Records regulations: The Federal rules restrict any use of the information to criminally investigate or prosecute any alcohol or drug abuse patient.[facility] HospitalIn the event this information is protected by the Federal Confidentiality of Alcohol and Drug Abuse Patient Records regulations: The Federal rules restrict any use of the information to criminally investigate or prosecute any alcohol or drug abuse patient.[facility] HospitalIn the event this information is protected by the Federal Confidentiality of Alcohol and Drug Abuse Patient Records regulations: The Federal rules restrict any use of the information to criminally investigate or prosecute any alcohol or drug abuse patient.[facility] HospitalIn the event this information is protected by the Federal Confidentiality of Alcohol and Drug Abuse Patient Records regulations: The Federal rules restrict any use of the information to criminally investigate or prosecute any alcohol or drug abuse patient.[facility] HospitalIn the event this information is protected by the Federal Confidentiality of Alcohol and Drug Abuse Patient Records regulations: The Federal rules restrict any use of the information to criminally investigate or prosecute any alcohol or drug abuse patient.[facility] HospitalIn the event this information is protected by the Federal Confidentiality of Alcohol and Drug Abuse Patient Records regulations: The Federal rules restrict any use of the information to criminally investigate or prosecute any alcohol or drug abuse patient.[facility] HospitalIn the event this information is protected by the Federal Confidentiality of Alcohol and Drug Abuse Patient Records regulations: The Federal rules restrict any use of the information to criminally investigate or prosecute any alcohol or drug abuse patient.[facility] HospitalIn the event this information is protected by the Federal Confidentiality of Alcohol and Drug Abuse Patient Records regulations: The Federal rules restrict any use of the information to criminally investigate or prosecute any alcohol or drug abuse patient.[facility] HospitalIn the event this information is protected by the Federal Confidentiality of Alcohol and Drug Abuse Patient Records regulations: The Federal rules restrict any use of the information to criminally investigate or prosecute any alcohol or drug abuse patient.[facility] HospitalIn the event this information is protected by the Federal Confidentiality of Alcohol and Drug Abuse Patient Records regulations: The Federal rules restrict any use of the information to criminally investigate or prosecute any alcohol or drug abuse patient.[facility] HospitalIn the event this information is protected by the Federal Confidentiality of Alcohol and Drug Abuse Patient Records regulations: The Federal rules restrict any use of the information to criminally investigate or prosecute any alcohol or drug abuse patient.[facility] HospitalIn the event this information is protected by the Federal Confidentiality of Alcohol and Drug Abuse Patient Records regulations: The Federal rules restrict any use of the information to criminally investigate or prosecute any alcohol or drug abuse patient.[facility] HospitalIn the event this information is protected by the Federal Confidentiality of Alcohol and Drug Abuse Patient Records regulations: The Federal rules restrict any use of the information to criminally investigate or prosecute any alcohol or drug abuse patient.[facility] HospitalIn the event this information is protected by the Federal Confidentiality of Alcohol and Drug Abuse Patient Records regulations: The Federal rules restrict any use of the information to criminally investigate or prosecute any alcohol or drug abuse patient.[facility] HospitalIn the event this information is protected by the Federal Confidentiality of Alcohol and Drug Abuse Patient Records regulations: The Federal rules restrict any use of the information to criminally investigate or prosecute any alcohol or drug abuse patient.[facility] HospitalIn the event this information is protected by the Federal Confidentiality of Alcohol and Drug Abuse Patient Records regulations: The Federal rules restrict any use of the information to criminally investigate or prosecute any alcohol or drug abuse patient.[facility] HospitalIn the event this information is protected by the Federal Confidentiality of Alcohol and Drug Abuse Patient Records regulations: The Federal rules restrict any use of the information to criminally investigate or prosecute any alcohol or drug abuse patient.[facility] HospitalIn the event this information is protected by the Federal Confidentiality of Alcohol and Drug Abuse Patient Records regulations: The Federal rules restrict any use of the information to criminally investigate or prosecute any alcohol or drug abuse patient.[facility] HospitalIn the event this information is protected by the Federal Confidentiality of Alcohol and Drug Abuse Patient Records regulations: The Federal rules restrict any use of the information to criminally investigate or prosecute any alcohol or drug abuse patient.[facility] HospitalIn the event this information is protected by the Federal Confidentiality of Alcohol and Drug Abuse Patient Records regulations: The Federal rules restrict any use of the information to criminally investigate or prosecute any alcohol or drug abuse patient.[facility] HospitalIn the event this information is protected by the Federal Confidentiality of Alcohol and Drug Abuse Patient Records regulations: The Federal rules restrict any use of the information to criminally investigate or prosecute any alcohol or drug abuse patient.[facility] HospitalIn the event this information is protected by the Federal Confidentiality of Alcohol and Drug Abuse Patient Records regulations: The Federal rules restrict any use of the information to criminally investigate or prosecute any alcohol or drug abuse patient.[facility] HospitalIn the event this information is protected by the Federal Confidentiality of Alcohol and Drug Abuse Patient Records regulations: The Federal rules restrict any use of the information to criminally investigate or prosecute any alcohol or drug abuse patient.[facility] HospitalIn the event this information is protected by the Federal Confidentiality of Alcohol and Drug Abuse Patient Records regulations: The Federal rules restrict any use of the information to criminally investigate or prosecute any alcohol or drug abuse patient.[facility] HospitalIn the event this information is protected by the Federal Confidentiality of Alcohol and Drug Abuse Patient Records regulations: The Federal rules restrict any use of the information to criminally investigate or prosecute any alcohol or drug abuse patient.[facility] HospitalIn the event this information is protected by the Federal Confidentiality of Alcohol and Drug Abuse Patient Records regulations: The Federal rules restrict any use of the information to criminally investigate or prosecute any alcohol or drug abuse patient.[facility] HospitalIn the event this information is protected by the Federal Confidentiality of Alcohol and Drug Abuse Patient Records regulations: The Federal rules restrict any use of the information to criminally investigate or prosecute any alcohol or drug abuse patient.[facility] HospitalIn the event this information is protected by the Federal Confidentiality of Alcohol and Drug Abuse Patient Records regulations: The Federal rules restrict any use of the information to criminally investigate or prosecute any alcohol or drug abuse patient.[facility] HospitalIn the event this information is protected by the Federal Confidentiality of Alcohol and Drug Abuse Patient Records regulations: The Federal rules restrict any use of the information to criminally investigate or prosecute any alcohol or drug abuse patient.[facility] HospitalIn the event this information is protected by the Federal Confidentiality of Alcohol and Drug Abuse Patient Records regulations: The Federal rules restrict any use of the information to criminally investigate or prosecute any alcohol or drug abuse patient.[facility] HospitalIn the event this information is protected by the Federal Confidentiality of Alcohol and Drug Abuse Patient Records regulations: The Federal rules restrict any use of the information to criminally investigate or prosecute any alcohol or drug abuse patient.[facility] Reason for Visit (unrecogniz ed section and content) Reason Comments Care Reason Comments Initial OB Visit Reason Comments US Specialty Diagnoses / Procedures Referred By Jaja carr Referred To Contact [facility] Diagnoses Encounter for screening of mother Procedures NUCHAL TRANSLUCENCY WHI US NUCHAL TRANSLUCENCY 1ST GESTATION Madie Sanchez MD [address] [place] [address] [facility] [address] [address] Referral ID Status Reason Start Date Expiration Date V isits Requested Visits Authorized [id number] Closed Auto-Generate d Referral 06/08/2022 06/08/2023 1 1 Reason Comments NIPT results Reason Onset Date Comments Care 07/10/2022 Reason Onset Date Comments Care 08/07/2022 Reason Onset Date Comments Care 08/16/2022 Reason Onset Date Comments Care 09/13/2022 Reason Comments Breast Pump Order Reason Onset Date Comments Care 10/18/2022 Reason Comments Patient Education Assessment Specialty Diagnoses / Procedures Referred By Contac t Referred To Contact Nutrition Diagnoses 30 weeks gestation of Procedures CONSULT TO NUTRITION THERAPY MEDICAL NUTRITION ASSMT&IVNTJ INDIV EACH 15 FL MEDICAL NUTRITION ASSMT&IVNTJ INDIV EACH 15 FL MEDICAL NUTRITION ASSMT&IVNTJ INDIV EACH 15 FL MEDICAL NUTRITION ASSMT&IVNTJ INDIV EACH 15 FL Gina Uriarte APRN.CNM [address] [place] [address] Referral ID Status Reason Start Date Expiration Date V isits Requested Visits Authorized [id number] Closed PCP Requested Referral 10/18/2022 10/18/2023 1 1 Reason Comments It Support Analyst - Other Care Cent er Reason Onset Date Comments Care 11/02/2022 Reason Comments Care Plan Care Coordination Reason Onset Date Comments Care 11/16/2022 Reason Comments breast pump order Reason Onset Date Comments Care 11/30/2022 Specialty Diagnoses / Procedures Referred By Contac t Referred To Contact [facility] Diagnoses 30 weeks gestation of Procedures OBSTETRIC ULTRASOUND WHI US PREG UTERUS AFTER 1ST TRIMEST GESTATION Gina Uriarte APRN.CN [address] [place] [address] [facility] [address] [place] [address] Referral ID Status Reason Start Date Expiration Date V isits Requested Visits Authorized [id number] Closed Auto-Generate d Referral 10/18/2022 10/18/2023 5 1 Reason Onset Date Comments Care 12/06/2022 Reason Onset Date Comments Care 12/13/2022 Reason Onset Date Comments Care 12/20/2022 Reason Comments Question (OB Question) Care Teams (unrecognized sec tion and content) Wildlife Conservationist Relationship Specialty Start Date End Date Aury Flynn, brick bakerSplicer Helper Medicine 11/02/22 Wildlife Conservationist Relationship Specialty Start Date End Date SpaAury casillas brick bakerSplicer Helper Medicine 11/02/22 Wildlife Conservationist Relationship Specialty Start Date End Date SpadaAury brick bakerSplicer Helper Medicine 11/02/22 Wildlife Conservationist Relationship Specialty Start Date End Date Spada, Aury brick bakerSplicer Helper Medicine 11/02/22 Wildlife Conservationist Relationship Specialty Start Date End Date SpadaAury brick bakerSplicer Helper Medicine 11/02/22 Wildlife Conservationist Relationship Specialty Start Date End Date Spada, Aury, brick bakerSplicer Helper Medicine 11/02/22 Wildlife Conservationist Relationship Specialty Start Date End Date Spada, Aury brick bakerSplicer Helper Medicine 11/02/22 Wildlife Conservationist Relationship Specialty Start Date End Date SpadaAury brick bakerSplicer Helper Medicine 11/02/22 Wildlife Conservationist Relationship Specialty Start Date End Date SpadaAury brick bakerSplicer Helper Medicine 11/02/22 Wildlife Conservationist Relationship Specialty Start Date End Date SpadaAury brick bakerSplicer Helper Medicine 11/02/22 Wildlife Conservationist Relationship Specialty Start Date End Date SpadaAury brick bakerSplicer Helper Medicine 11/02/22 Wildlife Conservationist Relationship Specialty Start Date End Date SpadaAury brick bakerSplicer Helper Medicine 11/02/22 FOR RECORDS PERTAINING TO PATIENTS WHO ARE OR HAVE BEEN ENROLLED IN A CHEMICAL DEPENDENCY/SUBSTANCEABUSE PROGRAM, SOME INFORMATION MAY BE OMITTED. This clinical summary was aggregated from multiple sources. Caution should be exercised in using it in the provision of clinical care. This summary normalizes information from multiple sources, and as a consequence, information in this document may materially change the coding, format and clinical context of patient data. In addition, data may be omitted in some cases. CLINICAL DECISIONS SHOULD BE BASED ON THE PRIMARY CLINICAL RECORDS. [facility]. provides no warranty or guarantee of the accuracy or completeness of information in this document.
[2022-12-24 20:17] LABS: Absolute Lymphocyte Count 1.92 X10^3/uL (0.83-4.51); Absolute Neutrophil Count 9.8 X10^3/uL (2.0-7.7); Basophil# 0.04 X10^3/uL; Basophil% 0.3 % (0-1); Eosinophil# 0.04 X10^3/uL; Eosinophils% 0.3 % (0-5); Hematocrit 38.6 % (37-47); Hemoglobin 12.4 g/dL (12.0-15.0); Lymphocyte # 1.92 X10^3/ul (0.83-4.51); Mean Corp Hgb Conc 32.1 g/dL (32-36); Mean Corpuscular Hgb 29.2 pg (27.0-32.0); Mean Corpuscular Volume 90.8 fL (81-99); Mean Platelet Vol. 12.3 fl (6.2-12.0); Monocyte# 1.04 X10^3/uL; Monocyte% 8.1 % (0-10); NRBC Flagged by Analyzer 0 % (0-5); Neutrophil # 9.75 X10^3/uL (2.7-7.7); Neutrophil % 75.9 % (47-70); Platelet Count 217 K/mm3 (150-450); RBC Distribution Width SD 46.5 fl (35.1-43.9); Red Blood Count 4.25 M/mm3 (4.2-5.4); White Blood Count 12.8 K/mm3 (4.4-11.0)
[2022-12-24 20:49] LABS: Syphilis Antibodies Non-reactive
[2022-12-24 20:59] LABS: Bedside Glucose 82 mg/dL (74-106)
--- NOTE | 2022-12-24 21:46 | PCM.HP.OB ---
HPI - General General Date of Admission: 12/24/22 Date of Service: 12/24/22 Chief Complaint: IOL HPI Narrative YESENIA AGUDELO, is a 32 F who presents at 39w6d for scheduled IOL. Having ctx's q 3-5 min since membrane sweep several days ago. No vb, lof. Good FM. Denies MALCOLM, vision changes, RUQ pain, N/V. PFSH PFSH Medical History (Updated 12/24/22 @ 21:[address] Angie Sanchez, DO) Anxiety Home Medications [id number] 1 mg tablet 1 tab PO DAILY 12/22/22 [History Last Taken 12/24/22 09:00 1 TAB] aspirin 81 mg tablet,delayed release (Adult Aspirin Regimen) 81 mg PO DAILY 12/24/22 [History Last Taken 12/24/22 09:00 81 mg] Allergy/AdvReac Type Severity Reaction Status Date / Time penicillin G Allergy Hives Verified 12/22/22 23:36 Surgical History (Updated 12/24/22 @ 19:39 by Carmelita Antoine) History of surgery Social History Smoking Status: Never smoker History Elective abortions Hx Para 0 Spontaneous abortions Hx # Term Pregnancies Ectopic pregnancies Hx # Pregnancies Multiple births # of living children NST FHR Rate Baby A FHR Category:: Category I Uterine Activity:: ctx's q 3-5 min Vital Signs Vital Signs Vital Signs: 12/24/22 19:30 12/24/22 19:30 12/24/22 19:32 Temperature Temperature Source Temporal Pulse Rate 111 H Blood Pressure 135/91 H BP Systolic 135 BP Diastolic 91 Pulse Ox 12/24/22 19:32 12/24/22 19:34 12/24/22 19:34 Temperature 97.2 F L Temperature Source Pulse Rate 125 H Blood Pressure BP Systolic BP Diastolic Pulse Ox 97 12/24/22 20:02 12/24/22 20:02 Temperature Temperature Source Pulse Rate 96 Blood Pressure 133/95 H BP Systolic 133 BP Diastolic 95 Pulse Ox Weight Weight: 131 lb 1.6 oz Body Mass Index (BMI) 26.4 Labs Labs Labs: Blood Type O POSITIVE Antibody Screen NEGATIVE Hct 38.6 % (37-47) Hgb 12.4 g/dL (12.0-15.0) Syphilis Total Ab Non-reactive Assessment & Plan (1) 39 weeks gestation of : (2) GDM, class A1: PLAN: - Diabetes protocol intrapartum (3) History of anxiety: PLAN: - Has been off medication for 1 year (4) cardiac anomaly affecting , antepartum: PLAN: - Had echo during showing possible bicuspid aortic valve - Baby to have a cardiac exam and post echo at 2-4 weeks of age (5) Encounter for planned induction of labor: PLAN: - Admit for routine intrapartum care - Cvx 2.5/80/-2, vertex on admission - Start pitocin per protocol - GBS neg - Epidural for pain control - Expected EFW < 4500 g and pelvis adequate - Anticipate vaginal delivery (6) Elevated blood pressure reading: PLAN: - Mild range BP on admission - Pt denies pre e symptoms - Check pre e labs - She attributes this to anxiety
[2022-12-24 22:00] LABS: AST(SGOT) 14 U/L (15-37); Alanine Aminotransfer ALT/SGPT 13 U/L (13-56); Creatinine, Serum 0.67 mg/dL (0.55-1.02); EST Glomerular Filtration Rate 106 mL/min (>60); Est Glom Filt Rate - Afr Amer 128 mL/min (>60); Estimated Creatinine Clearance 111.07 ml/min; Uric Acid 5.9 mg/dL (2.6-6.0)
[2022-12-24] MEDS: Oxytocin 15 Units/NS 250ml 15 UNITS/250 ML IV.SOLN 2 UNITS IV (22:00)
[2022-12-24] MEDS: Lactated Ringers 1,000 ML 50 ML IV (22:00)
[2022-12-24 22:22] LABS: Bedside Glucose 85 mg/dL (74-106)
[2022-12-24 22:23] LABS: Protein, Urine (Random) 47.7 mg/dL (<11.9); Protein:Creat Ratio 318 mg/g CRE (0-200)
[2022-12-24] MEDS: fentaNYL-bupivacaine (epidural) 100 ML BAG EPIDURAL (23:37)
[2022-12-25] VITALS (97 sets, daily range): BP systolic 117–153; BP diastolic 63–96; PULSE 69–155; TEMP 36.3–37.8; O2SAT 84–100
[2022-12-25] MEDS: fentaNYL-bupivacaine (epidural) 100 ML BAG EPIDURAL ×3 (04:50→17:40)
[2022-12-25] MEDS: Lactated Ringers 1,000 ML 200 ML IV ×3 (06:06→17:32)
[2022-12-25 06:17] LABS: Bedside Glucose 81 mg/dL (74-106)
[2022-12-25 06:21] LABS: Bedside Glucose 79 mg/dL (74-106)
[2022-12-25 08:09] LABS: Bedside Glucose 69 mg/dL (74-106)
--- NOTE | 2022-12-25 08:28 | PCM.PN.OB ---
Subjective Subjective Patient seen at bedside. Comfortable with epidural. Objective Data Objective Data Vital Signs: Vital Signs Temp Pulse BP Pulse Ox 98.3 F 93 135/80 H 98 12/25/22 07:20 12/25/22 08:11 12/25/22 08:11 12/25/22 07:22 Weight: 131 lb 1.6 oz Body Mass Index (BMI) 26.4 Intake & Output: Intake and Output for Last 24 Hours 12/23/22 12/24/22 12/25/22 23:59 23:59 23:59 Intake Total 3.83 / 3.83 1005.0 / 1005.0 Output Total 100 / 100 Balance 3.83 / 3.83 905.0 / 905.0 Lab / Micro Data 12/24/22 19:50 12/24/22 21:37 Labs: Laboratory Results - last 24 hr 12/24/22 19:50: WBC 12.8 H, RBC 4.25, Hgb 12.4, Hct 38.6, MCV 90.8, MCH 29.2, MCHC 32.1, RDW Std Deviation 46.5 H, RDW Coeff of Antony 14.0, Plt Count 217, MPV 12.3 H, Immature Gran % (Auto) 0.400, Neut % (Auto) 75.9 H, Lymph % (Auto) 15.0 L, [place] % (Auto) 8.1, Eos % (Auto) 0.3, Baso % (Auto) 0.3, Absolute Neuts (auto) 9.8 H, Absolute Lymphs (auto) 1.92, Nucleated RBC % 0, Syphilis Total Ab Non-reactive, Blood Type O POSITIVE, Antibody Screen NEGATIVE 12/24/22 20:38: POC Glucose 82 12/24/22 21:37: Creatinine 0.67, Estim Creat Clear Calc 111.07, Est GFR (MDRD) Af Amer 128, Est GFR (MDRD) Non-Af 106, Uric Acid 5.9, AST 14 L, ALT 13 12/24/22 21:48: POC Glucose 85 12/24/22 22:00: U Random Total Protein 47.7 H, Urine Creatinine 150.00, Protein/Creatinin Ratio 318 H 12/25/22 02:51: POC Glucose 81 12/25/22 06:02: POC Glucose 79 12/25/22 07:31: POC Glucose 69 L ROS Eyes Eyes: Denies blurry vision, change in vision or spots in vision ENT HEENT: Denies dizziness or headache(s) Cardiovascular Cardiovascular: Denies abdominal pain, chest pain or dyspnea Respiratory/Chest Respiratory/Chest: Denies cough, dyspnea, shortness of breath at rest or shortness of breath with exertion Gastrointestinal Gastrointestinal: Denies abdominal pain, diarrhea or vomiting Genitourinary Genitourinary: Denies change in urinary stream, difficulty urinating or dysuria Musculoskeletal Musculoskeletal: Reports none Integumentary Integumentary: Denies rash Neurologic Neurologic: Denies dizziness, headache(s), memory loss or weakness Physical Exam Const alert and no apparent distress General Appearance: cooperative and comfortable Exam Limitations: no limitations HEENT normocephalic Eyes General Eye: normal appearance of both eyes Neck full ROM General: normal visual inspection Chest Chest: symmetrical chest wall rise Resp normal respiratory effort and normal air movement Effort and Inspection: symmetric chest movement Auscultation: clear to auscultation bilaterally Cardio regular rate and regular rhythm GI normal to inspection, nondistended, normoactive bowel sounds Back/Spine normal ROM Extremity full ROM and no calf tenderness General Extremity: normal exam except as noted Skin no rashes or lesions noted Neuro CN's II-XII intact bilaterally Psych mental status grossly normal Assessment & Plan (1) Encounter for planned induction of labor: (2) cardiac anomaly affecting , antepartum: (3) History of anxiety: (4) GDM, class A1: (5) Elevated blood pressure reading: PLAN: Plan CE /-1- thick anterior BP 135/80- denies headache, vision changes NST reactive Pitocin IV @ 6 mu/min- continue to increase per policy Urine bloody- appropriate output continue to monitor BS= normal Anticipate Dr. Mcgill updated and is collaborating physician
[2022-12-25] MEDS: Ondansetron 4 MG/2 ML Vial IV (09:03)
[2022-12-25 09:50] LABS: Bedside Glucose 94 mg/dL (74-106)
[2022-12-25 10:01] LABS: Bedside Glucose 86 mg/dL (74-106)
[2022-12-25 11:08] LABS: Bedside Glucose 78 mg/dL (74-106)
[2022-12-25] MEDS: LACTATED RINGERS 500 ML 999 ML IV ×2 (11:59→19:00)
[2022-12-25 12:51] LABS: Bedside Glucose 73 mg/dL (74-106)
[2022-12-25] MEDS: DiphenhydrAMINE 25 MG Capsule 50 MG PO (12:53)
[2022-12-25 16:18] LABS: Bedside Glucose 71 mg/dL (74-106)
[2022-12-25 16:18] LABS: Bedside Glucose 73 mg/dL (74-106)
[2022-12-25 16:18] LABS: Bedside Glucose 75 mg/dL (74-106)
--- NOTE | 2022-12-25 17:52 | PCM.PN.BLA ---
Progress Note Patient seen at bedside. Denies any pain. Feeling some pressure with contractions. Assessment & Plan Assessment/Plan (1) Encounter for planned induction of labor: (2) cardiac anomaly affecting , antepartum: (3) History of anxiety: (4) GDM, class A1: (5) 40 weeks gestation of : PLAN: Plan CE- 10/+1 station Will start pushing Anticipate Dr. Mcgill aware of patient's status
[2022-12-25] MEDS: Oxytocin 15 Units/NS 250ml 15 UNITS/250 ML IV.SOLN 83 UNITS IV (20:03)
--- NOTE | 2022-12-25 20:05 | EX.PCM.OBRPT ---
Assessment & Plan (1) (spontaneous vaginal delivery): Maternal Data Information Final SHIREEN: 12/25/22 Gestational age: 40 0/7 Vaginal Delivery Maternal Presentation Maternal Presentation: Spontaneous Rupture of Membranes Type of Induction: Pitocin Operative Information Date of Procedure: 12/25/22 Pre-Operative Diagnosis: labor, meconium stained fluid Post-Operative Diagnosis: same Surgery / Procedure Performed: Spontaneous Vaginal Delivery Type of Anesthesia: Epidural Special Medications: none Drain: Del[place]ruz to straight drain Estimated Blood Loss: 400 Time of Delivery: 19:39 Findings Description of Procedure: I arrived to evaluate the patient. She was labia with pushing when I arrived. There was thick meconium stained fluid. skull was ROT. with 2 contractions I was able to rotate the head to MARISEL. tachycardia was noted but heart tones were stable with just some variables during pushing. There was minimal variability. heart tones returned to baseline in between contractions. heart tones returned to baseline between contractions. She was making progress. A [female] was delivered [MARISEL] over an intact perineum. The remainder the infant was delivered with maternal pushing and gentle traction only in less than 15 seconds. The Pitocin infusion was initiated for active management of the third stage. The cord was clamped and cut immediately. A section of cord was collected for cord gases. The was attended to by the waiting nursing staff and dull coat mill operator. The placenta was delivered spontaneously and intact. The cervix and vagina were intact. The first-degree vaginal laceration was repaired with 3-0 Vicryl Rapide suture in a running locked fashion and hemostasis was noted. Sponge and needle counts were correct. A vaginal sweep was completed by me. Presentation: MARISEL Amniotic Membrane Rupture Type: Spontaneous Amniotic Fluid Description: Thick meconium Placental Delivery Description: Spontaneous Placenta Disposition: Sent with transport team Cord Vessel Description: 3 Vessels Cord Entanglement: None Cord Gases: ABG and VBG Infant A Gender: Female ([place]) Delayed Cord Clamping: No Post Vaginal Delivery Medications Given After Delivery: IV Pitocin Episiotomy Description: None Laceration: 1st degree (vaginal) Complication Complications: None
[2022-12-25 21:08] LABS: Bedside Glucose 112 mg/dL (74-106)
[2022-12-25 21:08] LABS: Bedside Glucose 69 mg/dL (74-106)
[2022-12-25] MEDS: Ibuprofen 600 MG Tablet PO (21:19)
[2022-12-25 21:30] LABS: Bedside Glucose 100 mg/dL (74-106)
[2022-12-26] VITALS (11 sets, daily range): BP systolic 124–151; BP diastolic 79–90; PULSE 68–107; RESP 16; TEMP 36.1–36.6; O2SAT 98–99
[2022-12-26 06:07] LABS: Hematocrit 30.6 % (37-47); Hemoglobin 10.3 g/dL (12.0-15.0); Mean Corp Hgb Conc 33.7 g/dL (32-36); Mean Corpuscular Hgb 30.3 pg (27.0-32.0); Mean Platelet Vol. 11.8 fl (6.2-12.0); Platelet Count 159 K/mm3 (150-450); RBC Distribution Width CV 14.2 % (11.6-14.6); RBC Distribution Width SD 46.9 fl (35.1-43.9); White Blood Count 18.6 K/mm3 (4.4-11.0)
[2022-12-26 06:20] LABS: Bedside Glucose 85 mg/dL (74-106)
--- NOTE | 2022-12-26 06:37 | PN.OBGYN_ITS ---
Subjective Subjective Patient seen at bedside. Ambulating and voiding without difficulty. Lochia decreasing. Denies any pain. Pumping. Desires discharge to go to [facility] where was transferred. Objective Data Objective Data Vital Signs: Vital Signs Temp Pulse Resp BP Pulse Ox O2 Del Method 97.8 F 70 16 138/80 H 99 Room Air 12/26/22 03:05 12/26/22 03:06 12/26/22 03:05 12/26/22 03:06 12/26/22 03:06 12/26/22 03:05 Oxygen Delivery Method Room Air Weight: 131 lb 1.6 oz Body Mass Index (BMI) 26.4 Intake & Output: Intake and Output for Last 24 Hours 12/24/22 12/25/22 12/26/22 23:59 23:59 23:59 Intake Total 3.83 / 3.83 5479.50 / 5479.50 Output Total 771 / 771 65 / 65 Balance 3.83 / 3.83 4708.50 / 4708.50 -65 / -65 Lab / Micro Data 12/26/22 06:00 12/24/22 21:37 Labs: Laboratory Results - last 24 hr 12/25/22 07:31: POC Glucose 69 L 12/25/22 08:32: POC Glucose 94 12/25/22 09:36: POC Glucose 86 12/25/22 10:37: POC Glucose 78 12/25/22 12:20: POC Glucose 73 L 12/25/22 13:47: POC Glucose 73 L 12/25/22 14:47: POC Glucose 75 12/25/22 15:54: POC Glucose 71 L 12/25/22 17:20: POC Glucose 69 L 12/25/22 18:45: POC Glucose 112 H 12/25/22 21:02: POC Glucose 100 12/26/22 05:56: POC Glucose 85 12/26/22 06:00: WBC 18.6 H, RBC 3.40 L, Hgb 10.3 L, Hct 30.6 L, MCV 90.0, MCH 30.3, MCHC 33.7, RDW Std Deviation 46.9 H, RDW Coeff of Antony 14.2, Plt Count 159, MPV 11.8 ROS Eyes Eyes: Denies blurry vision, change in vision or spots in vision ENT HEENT: Denies dizziness or headache(s) Cardiovascular Cardiovascular: Denies abdominal pain, chest pain or dyspnea Respiratory/Chest Respiratory/Chest: Denies cough, dyspnea, shortness of breath at rest or shortness of breath with exertion Gastrointestinal Gastrointestinal: Denies abdominal pain, diarrhea or vomiting Genitourinary Genitourinary: Denies change in urinary stream, difficulty urinating or dysuria Musculoskeletal Musculoskeletal: Reports none Integumentary Integumentary: Denies rash Neurologic Neurologic: Denies dizziness, headache(s), memory loss or weakness Physical Exam Const alert and no apparent distress General Appearance: cooperative and comfortable Exam Limitations: no limitations HEENT normocephalic Eyes General Eye: normal appearance of both eyes Neck full ROM General: normal visual inspection Chest Chest: symmetrical chest wall rise Resp normal respiratory effort and normal air movement Effort and Inspection: symmetric chest movement Auscultation: clear to auscultation bilaterally Cardio regular rate and regular rhythm GI normal to inspection, nondistended, normoactive bowel sounds Back/Spine normal ROM Extremity full ROM and no calf tenderness General Extremity: normal exam except as noted Skin no rashes or lesions noted Neuro CN's II-XII intact bilaterally Psych mental status grossly normal Assessment & Plan (1) (spontaneous vaginal delivery): (2) Mother currently breast-feeding: PLAN: Plan PPD 1 Routine care Pain control D/C home with follow up in office
--- NOTE | 2022-12-26 06:40 | DCINST_ITS ---
Discharge Instructions Diet Discharge Diet: No restrictions Activity Discharge Activity: Return to Normal Activity, May Shower and May Take a Tub Bath May resume sexual activity in: 4-6 weeks Weight Bearing Status: Weight bearing as tolerated Dressing / Incision Call your doctor if you observe: Fever of 101 or Higher, Inability to urinate, Using more than 1 pad per hour, Shortness of breath, Dizziness, Swelling in the ankles, Chest pain, Calf discomfort and Uncontrolled pain Follow Up Care Please Follow Up With: Amara Barney CNM When: Within 10 days Test Results: Test results from this visit will be discussed in further detail at your follow- up appointment, if applicable. Discharge Plan Admission Admit Date/Time: 12/24/22 18:55 Primary Reason for Your Visit: Labor and Delivery Attending Provider: Lani Mcgill Primary Care Provider: Moira Schafer Discharge Orders/Prescriptions Prescriptions: Continued [id number]-[id number] 1 mg tablet 1 tab PO DAILY Discontinued aspirin [Adult Aspirin Regimen] 81 mg tablet,delayed release (DR/EC) 81 mg PO DAILY Referrals / Follow Up: Amara Barney CNM [Med Staff - [facility]] - Moira Schafer MD [Primary Care Provider] - Disposition Disposition (needs filled in before D/C Order can be placed): Home, Self Care
[2022-12-26] MEDS: Ibuprofen 600 MG Tablet PO (11:21)
[2022-12-26] MEDS: Benzocaine/Lanolin/Aloe Vera 1 SPRAY EACH TOPICAL (11:31)
== END 2022-12-26 11:40 | disposition home or self-care (01) | DRG 807 ==
PROVIDERS: Admitting Provider Obstetrics & Gynecology; PCP Family Medicine; Visit Provider Obstetrics & Gynecology
DX: O24.420 Gestational diabetes mellitus in childbirth, diet controlled (principal); Z37.0 Single live birth; R03.0 Elevated blood-pressure reading, without diagnosis of hypertension; O35.BXX0 Maternal care for other (suspected) fetal abnormality and damage, fetal cardiac anomalies, not applicable or unspecified; O70.0 First degree perineal laceration during delivery; O99.892 Other specified diseases and conditions complicating childbirth; O76 Abnormality in fetal heart rate and rhythm complicating labor and delivery; Z79.82 Long term (current) use of aspirin; O77.0 Labor and delivery complicated by meconium in amniotic fluid; Z3A.39 39 weeks gestation of pregnancy; Z86.59 Personal history of other mental and behavioral disorders
CPT/HCPCS: 59025; 59050; 82565; 82570; 82962; 84156; 84450; 84460; 84550; 85025; 85027; 86780; 86850; 86900; 86901; 99221; J7120; G0378; J2405